=== PATIENT | female | born 1965 | race Caucasian/White ===

== ENCOUNTER 2018-04-21 15:27 | Observation (INO) | payer MEDICAID ==
[~2018-04-21] VITALS: Ht 167.6 cm; Wt 68.5 kg
[2018-04-21 16:11] LABS: BASOPHILS # (AUTO) 0.1 10^3/uL (0.0-0.1); BASOPHILS % (AUTO) 1 % (0-10); EOSINOPHILS # (AUTO) 0.6 10^3/uL (0.0-0.3); EOSINOPHILS % (AUTO) 7 % (0-10); LYMPHOCYTES # (AUTO) 2.3 X 10^3 (1.0-4.0); LYMPHOCYTES % (AUTO) 27 % (12-44); MEAN CORPUSCULAR HEMOGLOBIN 23 PG (25-34); MEAN CORPUSCULAR HGB CONC 30 G/DL (32-36); MEAN CORPUSCULAR VOLUME 76 FL (80-99); MEAN PLATELET VOLUME 9.2 FL (7.4-10.4); MONOCYTES # (AUTO) 0.6 X 10^3 (0.0-1.0); MONOCYTES % (AUTO) 7 % (0-12); NEUTROPHILS % (AUTO) 59 % (42-75); PLATELET COUNT 624 10^3/uL (130-400); RED BLOOD COUNT 2.61 10^6/uL (4.35-5.85); RED CELL DISTRIBUTION WIDTH 16.8 % (10.0-14.5); WHITE BLOOD COUNT 8.5 10^3/uL (4.3-11.0)
[2018-04-21 16:13] LABS: HEMATOCRIT 20 % (35-52); HEMOGLOBIN 5.9 G/DL (11.5-16.0)
[2018-04-21 16:26] LABS: BILIRUBIN,TOTAL 0.1 MG/DL (0.1-1.0); CALCIUM 9.1 MG/DL (8.5-10.1); CREATININE SERUM 1.01 MG/DL (0.60-1.30); POTASSIUM 4.1 MMOL/L (3.6-5.0); TOTAL PROTEIN 7.5 GM/DL (6.4-8.2)
[2018-04-21] MEDS ORDERED: NS IV 500 ML 500 ML IV SCH ×2 (17:01→20:00)
--- NOTE | 2018-04-21 17:15 | ED General ---
General Chief Complaint: General Problems/Pain Stated Complaint: TIRED;LOW HEMOGLOBIN Nursing Triage Note: PT PRESENTS TO ED FROM DR OFFICE AFTER SHE WAS TOLD HER HGB WAS LOW WHEN THEY WERE TRYING TO CHECK HER A1C. PT REPORTS SHE HAS BEEN FEELING FATIGUED FOR 2 WEEKS AND NOTICED INCREASE IN PALENESS. Nursing Sepsis Screen: No Definite Risk Source of Information: Patient Exam Limitations: No Limitations History of Present Illness Date Seen by Provider: Apr 21, 2018 Time Seen by Provider: 17:11 Initial Comments The patient is a 52-year-old white female who was sent here from her provider's office. She stated that she had gone in for a routine diabetic check and had laboratory drawn because she appeared to be the pale and reported she was fatigued. She was found to have a hemoglobin of 5. She denies any evidence of bleeding which is to say vomiting blood or black tarry looking stools or hematochezia. She is postmenopausal. Allergies and Home Medications Allergies Coded Allergies: Penicillins (Verified Allergy, Unknown, 04/21/18) iodine (Verified Allergy, Unknown, 04/21/18) risperidone (Verified Allergy, Unknown, 04/21/18) Home Medications Unable to Obtain Active Prescriptions or Reported Meds Patient Home Medication List Home Medication List Reviewed: Yes Review of Systems Constitutional: see HPI, malaise, other (fatigue) EENTM: no symptoms reported Cardiovascular: no symptoms reported Gastrointestinal: no symptoms reported Genitourinary: no symptoms reported Musculoskeletal: no symptoms reported Psychiatric/Neurological: No Symptoms Reported Hematologic/Lymphatic: No Symptoms Reported Immunological/Allergic: no symptoms reported Past Iojchty-Uzyzmb-Gpaelk Hx Patient Social History Alcohol Use: Denies Use Recreational Drug Use: Yes Smoking Status: Current Everyday Smoker Type Used: Cigarettes Recent Foreign Travel: No Contact w/Someone Who Travel: No Recent Infectious Disease Expo: No Recent Hopitalizations: No Physical Abuse: No Sexual Abuse: No Mistreated: No Fear: No Past Medical History Surgeries: Yes Appendectomy, Section, Gallbladder, Hysterectomy, Tonsillectomy, Tubal Ligation Respiratory: No Cardiac: No Neurological: No Genitourinary: No Gastrointestinal: No Musculoskeletal: No Endocrine: Yes Diabetes, Non-Insulin dep Cancer: No Psychosocial: Yes PTSD, Schizophrenia, Depression Nursing Suicide Risk Score: 0 Integumentary: No Blood Disorders: No Adverse Reaction/Blood Tranf: No Physical Exam Vital Signs Vital Signs - First Documented 04/21/18 16:06 Temp 98.4 Pulse 81 Resp 16 B/P (MAP) 164/81 (108) Pulse Ox 100 Capillary Refill : Less Than 3 Seconds Height, Weight, BMI Height: 5'6.00" Weight: 151lbs. oz. 68.205464gr; BMI Method:Stated General Appearance: No Apparent Distress, WD/WN, Other (vital signs are normal pulse equals 95) Eyes: Bilateral Eye Normal Inspection HEENT: Normal ENT Inspection Neck: Normal Inspection Respiratory: Chest Non Tender, Lungs Clear, Normal Breath Sounds, No Accessory Muscle Use, No Respiratory Distress Cardiovascular: Regular Rate, Rhythm, No Edema, No Gallop, No JVD, No Murmur, Normal Peripheral Pulses Gastrointestinal: Normal Bowel Sounds, No Organomegaly, No Pulsatile Mass, Non Tender Back: Normal Inspection, No CVA Tenderness, No Vertebral Tenderness Extremity: Normal Capillary Refill, Normal Inspection, Normal Range of Motion, Non Tender, No Calf Tenderness, No Pedal Edema Neurologic/Psychiatric: Alert, Oriented x3, No Motor/Sensory Deficits, Normal Mood/Affect Skin: Normal Color, Warm/Dry Lymphatic: No Adenopathy Progress/Results/Core Measures Suspected Sepsis Recent Fever Within 48 Hours: No Infection Criteria Present: None New/Unexplained Altered Menta: No Sepsis Screen: No Definite Risk SIRS Temperature:98.4 Pulse: 81 Respiratory Rate: 16 Laboratory Tests 04/21/18 16:01: White Blood Count 8.5 Blood Pressure 164 /81 Mean: 108 Laboratory Tests 04/21/18 16:01: Creatinine 1.01, Platelet Count 624H, Total Bilirubin 0.1 Results/Orders Lab Results Laboratory Tests Test 04/21/18 16:01 Range/Units White Blood Count 8.5 4.3-11.0 10^3/uL Red Blood Count 2.61 L 4.35-5.85 10^6/uL Hemoglobin 5.9 *L 11.5-16.0 G/DL Hematocrit 20 *L 35-52 % Mean Corpuscular Volume 76 L 80-99 FL Mean Corpuscular Hemoglobin 23 L 25-34 PG Mean Corpuscular Hemoglobin Concent 30 L 32-36 G/DL Red Cell Distribution Width 16.8 H 10.0-14.5 % Platelet Count 624 H 130-400 10^3/uL Mean Platelet Volume 9.2 7.4-10.4 FL Neutrophils (%) (Auto) 59 42-75 % Lymphocytes (%) (Auto) 27 12-44 % Monocytes (%) (Auto) 7 0-12 % Eosinophils (%) (Auto) 7 0-10 % Basophils (%) (Auto) 1 0-10 % Neutrophils # (Auto) 5.0 1.8-7.8 X 10^3 Lymphocytes # (Auto) 2.3 1.0-4.0 X 10^3 Monocytes # (Auto) 0.6 0.0-1.0 X 10^3 Eosinophils # (Auto) 0.6 H 0.0-0.3 10^3/uL Basophils # (Auto) 0.1 0.0-0.1 10^3/uL Sodium Level 142 135-145 MMOL/L Potassium Level 4.1 3.6-5.0 MMOL/L Chloride Level 110 H 98-107 MMOL/L Carbon Dioxide Level 22 21-32 MMOL/L Anion Gap 10 5-14 MMOL/L Blood Urea Nitrogen 6 L 7-18 MG/DL Creatinine 1.01 0.60-1.30 MG/DL Estimat Glomerular Filtration Rate 58 BUN/Creatinine Ratio 6 Glucose Level 163 H 70-105 MG/DL Calcium Level 9.1 8.5-10.1 MG/DL Total Bilirubin 0.1 0.1-1.0 MG/DL Aspartate Amino Transf (AST/SGOT) 17 5-34 U/L Alanine Aminotransferase (ALT/SGPT) 8 0-55 U/L Alkaline Phosphatase 62 40-136 U/L Total Protein 7.5 6.4-8.2 GM/DL Albumin 4.0 3.2-4.5 GM/DL My Orders Orders - YANELIS LAGUERRE MD Vital Signs: Special (Order) (04/21/18 17:01) Consent-Obtain Consent For (04/21/18 17:01) Monitor S/S Transfusion Reacti (04/21/18 17:01) Ns Iv 500 Ml (Sodium Chloride 0.9%) (04/21/18 17:01) Red Cells Leukocytes Reduced (04/21/18 17:01) Anemia Analyzer (04/21/18 17:01) Type And Screen (04/21/18 17:01) Vital Signs/I&O 04/21/18 16:06 Temp 98.4 Pulse 81 Resp 16 B/P (MAP) 164/81 (108) Pulse Ox 100 Capillary Refill : Less Than 3 Seconds Blood Pressure Mean: 108 Departure Impression Primary Impression: severe anemia Additional Impression: diabetes type II Disposition: ADMITTED INPATIENT Condition: Stable/Unchanged (cosleep [place] I and a nearly 6 who apparently was seen earlier today in [place]) Admissions Decision to Admit Reason: Admit from ER (General) Decision to Admit/Date: Apr 21, 2018 Time/Decision to Admit Time: 17:33 Departure-Patient Inst. Referrals: AGUILAR SMITH (PCP) Primary Care Physician Scripts Unable to Obtain Active Prescriptions or Reported Meds YANELIS LAGUERRE MD Apr 21, 2018 17:14
[2018-04-21] MEDS ORDERED: NS IV 1000 ML 1,000 ML IV SCH ×2 (17:45→20:00)
--- NOTE | 2018-04-21 18:10 | Consultation ---
History of Present Illness History of Present Illness Patient Consulted On(dorota/time) 04/21/18 18:05 Date Seen by Provider: Apr 21, 2018 Time Seen by Provider: 17:36 History of Present Illness Surgery asked to consult regarding anemia. HPI per ED: The patient is a 52-year-old white female who was sent here from her provider's office. She stated that she had gone in for a routine diabetic check and had laboratory drawn because she appeared to be the pale and reported she was fatigued. She was found to have a hemoglobin of 5. She denies any evidence of bleeding which is to say vomiting blood or black tarry looking stools or hematochezia. She is postmenopausal. When I spoke to pt she stated the only time she ever saw bloody BM's was when " I had my hemorrhoids"; which was 10-20 yrs ago and she has not seen bleeding or black BM's since. She states she has only been "weak" for about 2 weeks; thought she was fine before that. Pt denies any abdominal pain, with no trouble eating. She denies heartburn and has never had an EGD. She has however had multiple colonoscopies, the first at 22 yo because her mother at 44 of colon cancer. She states she had another one 10 years later and then maybe 2 years after that she had another because of bleeding. She thinks her last colonoscopy was about 5 years ago and she states that they've never found any polyps or problems anywhere during the colonoscopies. Patient states she thought her father might have a low blood level because of a "blockage in his kidney. She however does not think there been any other people in her family with low hemoglobin. Allergies and Home Medications Allergies Coded Allergies: Penicillins (Verified Allergy, Unknown, 04/21/18) iodine (Verified Allergy, Unknown, 04/21/18) risperidone (Verified Allergy, Unknown, 04/21/18) Home Medications Unable to Obtain Active Prescriptions or Reported Meds Patient Home Medication List Home Medication List Reviewed: Yes Past Tlyzrfj-Ksdruv-Yzjgsm Hx Patient Social History Alcohol Use: Denies Use Recreational Drug Use: Yes Smoking Status: Current Everyday Smoker Type Used: Cigarettes Recent Foreign Travel: No Contact w/Someone Who Travel: No Recent Infectious Disease Expo: No Recent Hopitalizations: No Surgeries History of Surgeries: Yes Surgeries: Appendectomy, Section, Gallbladder, Hysterectomy, Tonsillectomy, Tubal Ligation Respiratory History of Respiratory Disorde: No Cardiovascular History of Cardiac Disorders: No Neurological History of Neurological Disord: No Reproductive System : No Genitourinary History of Genitourinary Disor: No Gastrointestinal History of Gastrointestinal Di: No Musculoskeletal History of Musculoskeletal Dis: No Endocrine History of Endocrine Disorders: Yes Endocrine Disorders: Diabetes, Non-Insulin dep HEENT History of HEENT Disorders: No Loss of Vision: Denies Hearing Impairment: Denies Cancer History of Cancer: No Psychosocial History of Psychiatric Problem: Yes Behavioral Health Disorders: PTSD, Schizophrenia, Depression Integumentary History of Skin or Integumenta: No Blood Transfusions History of Blood Disorders: No Adverse Reaction to a Blood Tr: No Family Medical History Significant Family History: Cancer (Mother of colon cancer), Diabetes ( Father and siblings) Review of Systems-General Constitutional: No chills, No diaphoresis; dizziness, malaise, weakness EENTM: No blurred vision, No mouth pain, No mouth swelling, No epistaxis Respiratory: No cough, No hemoptysis, No short of breath Cardiovascular: No chest pain, No edema, No palpitations Gastrointestinal: No abdominal pain, No dysphagia, No hematemesis, No jaundice Genitourinary: No dysuria, No frequency, No hematuria Musculoskeletal: joint pain, muscle stiffness Skin: No change in color, No change in hair/nails Psychiatric/Neurological: Anxiety, Depressed; Denies Seizure, Denies Tremors Other Pt denies any abnormal bleeding or bruising, She also denies heat or cold intolerance. Physical Exam-General Problems Physical Exam Vital Signs Vital Signs - First Documented 04/21/18 16:06 Temp 98.4 Pulse 81 Resp 16 B/P (MAP) 164/81 (108) Pulse Ox 100 Capillary Refill : Less Than 3 Seconds General Appearance: WD/WN, mild distress Eyes: Bilateral Eye PERRL, Bilateral Eye EOMI HEENT: pharynx normal; No scleral icterus (R), No scleral icterus (L); pale conjunctivae (R), pale conjunctivae (L), other (patient is edentulous.) Neck: non-tender; No thyromegaly Respiratory: chest non-tender, lungs clear, normal breath sounds, no respiratory distress, no accessory muscle use Cardiovascular: regular rate, rhythm, no edema, no murmur Gastrointestinal: normal bowel sounds, non tender, soft, no organomegaly, no pulsatile mass Rectal: deferred Back: no CVA tenderness, no vertebral tenderness Extremities: normal range of motion, non-tender, normal inspection, no pedal edema, no calf tenderness Neurologic/Psychiatric: psychiatric social worker II-XII nml as tested, no motor/sensory deficits, alert, normal mood/affect, oriented x 3 Skin: warm/dry, pallor Lymphatic: no adenopathy (neck, axilla or groin) Data Review Labs Laboratory Tests 04/21/18 16:01: White Blood Count 8.5, Red Blood Count 2.61L, Hemoglobin 5.9*L, Hematocrit 20*L , Mean Corpuscular Volume 76L, Mean Corpuscular Hemoglobin 23L, Mean Corpuscular Hemoglobin Concent 30L, Red Cell Distribution Width 16.8H, Platelet Count 624H, Mean Platelet Volume 9.2, Neutrophils (%) (Auto) 59, Lymphocytes (% ) (Auto) 27, Monocytes (%) (Auto) 7, Eosinophils (%) (Auto) 7, Basophils (%) ( Auto) 1, Neutrophils # (Auto) 5.0, Lymphocytes # (Auto) 2.3, Monocytes # (Auto) 0.6, Eosinophils # (Auto) 0.6H, Basophils # (Auto) 0.1, Sodium Level 142, Potassium Level 4.1, Chloride Level 110H, Carbon Dioxide Level 22, Anion Gap 10 , Blood Urea Nitrogen 6L, Creatinine 1.01, Estimat Glomerular Filtration Rate 58 , BUN/Creatinine Ratio 6, Glucose Level 163H, Calcium Level 9.1, Total Bilirubin 0.1, Aspartate Amino Transf (AST/SGOT) 17, Alanine Aminotransferase ( ALT/SGPT) 8, Alkaline Phosphatase 62, Total Protein 7.5, Albumin 4.0 Assessment/Plan Assessment/Plan Assessment/Plan Anemia - profound DM Schizophrenia and Depression Patient is being admitted for blood transfusions. She will need a workup for anemia and prior that includes an EGD and a colonoscopy. This can be done as an outpatient and I informed the patient of this; we'll set this up for the next week or 2 when she is out after receiving blood. I discussed both procedures with the patient including risk and complications not limited to pain bleeding infection possible intestinal perforation or even esophageal perforation. We most likely will do biopsies and possibly polypectomies depending on what we find. Once she goes home I'll have my office call her and set up the procedures and give further instructions for her prep so that she does not come see me in the office we can just be an endoscopy. Patient had no questions all were answered to her satisfaction. Thank you for this consult. SHERRI ELLSWORTH DO Apr 21, 2018 18:10
[2018-04-21 18:31] LABS: RED BLOOD COUNT 2.61 10^6/uL (4.35-5.85); WHITE BLOOD COUNT 8.5 10^3/uL (4.3-11.0)
[2018-04-21 18:32] LABS: HEMATOCRIT 20 % (35-52); HEMOGLOBIN 5.9 G/DL (11.5-16.0); MEAN CORPUSCULAR HEMOGLOBIN 23 PG (25-34)
[2018-04-21 18:33] LABS: BAND NEUTROPHILS 0 %; BASOPHILS # (AUTO) 0.1 10^3/uL (0.0-0.1); BASOPHILS % (AUTO) 1 % (0-10); EOSINOPHILS # (AUTO) 0.6 10^3/uL (0.0-0.3); EOSINOPHILS % (AUTO) 7 % (0-10); EOSINOPHILS % (MANUAL) 5 %; LYMPHOCYTES # (AUTO) 2.3 X 10^3 (1.0-4.0); LYMPHOCYTES % (AUTO) 27 % (12-44); LYMPHOCYTES % (MANUAL) 24 %; MEAN CORPUSCULAR HGB CONC 30 G/DL (32-36); MEAN CORPUSCULAR VOLUME 76 FL (80-99); MEAN PLATELET VOLUME 9.2 FL (7.4-10.4); MONOCYTES # (AUTO) 0.6 X 10^3 (0.0-1.0); MONOCYTES % (AUTO) 7 % (0-12); MONOCYTES % (MANUAL) 6 %; NEUTROPHILS % (AUTO) 59 % (42-75); NEUTROPHILS % (MANUAL) 65 %; PLATELET COUNT 624 10^3/uL (130-400); RED CELL DISTRIBUTION WIDTH 16.8 % (10.0-14.5)
[2018-04-21 18:34] LABS: HYPOCHROMASIA SLIGHT; MICROCYTOSIS SLIGHT
[2018-04-21 18:35] LABS: ABSOLUTE RETIC # 0 10e9/L (24-90); RETICULOCYTE % 1.22 % (0.50-2.40)
[2018-04-21 19:00] VITALS: BP 153/85
[2018-04-21] MEDS ORDERED: ACETAMINOPHEN 325 MG TABLET PO ONE (19:30)
[2018-04-21] MEDS ORDERED: ACETAMINOPHEN 325 MG TABLET PO PRN (20:00)
[2018-04-21] MEDS ORDERED: CATHETER FLUSH 10 ML SYR IV PRN (20:00)
[2018-04-21 22:14] VITALS: BP 138/68
[2018-04-21 22:22] VITALS: BP 138/68
[2018-04-21 23:00] VITALS: BP 145/65
[2018-04-21 23:15] VITALS: BP 151/70
--- OUTSIDE RECORDS SUMMARY | 2018-04-22 00:21 | XMS REPORT ---
Author Author AGUILAR SMITH [facility] Address [address] [place] [address] Care Team Providers Care Customer Service Supervisor Name Role Phone SMITH, AGUILAR Unavailable PROBLEMS Type Condition ICD9-CM Code PSQ44-LG Code Onset Dates Condition Status SNOMED Code Problem Hypertriglyceridemia E78.1 Active 063223123 Problem Type 2 diabetes mellitus without complication, without long-term current use of insulin E11.9 Active 132798314 Problem Psoriasis L40.9 Active 5251795 Problem Depression, unspecified depression type F32.9 Active 07678607 Problem Schizophrenia, unspecified type F20.9 Active 50806427 Problem Prediabetes R73.09 Active 314918956 Problem PTSD (post-traumatic stress disorder) F43.10 Active 08981342 Problem Frequent headaches R51 Active 281416921 Problem Insomnia due to other mental disorder F51.05 Active 84738244 Problem Hip bursitis, left M70.72 Active 42470667 Problem Diabetic polyneuropathy associated with type 2 diabetes mellitus E11.42 Active 63827059 Problem History of lump of left breast Z87.898 Active 731198083 Problem Chronic constipation K59.09 Active 519223476 ALLERGIES Substance Reaction Event Type Date Status Risperdal hives Drug Allergy Dec, Active Penicillin V Potassium rash Drug Allergy Dec, Active Iodine anaphylaxis Drug Allergy Dec, Active ENCOUNTERS Encounter Location Date Diagnosis [facility] [address] [facility] [id number] [phone] Apr, [facility] [id number] [id number] Feb, Frequent headaches R51 [facility] [id number] [place] [address] [id number] Dec, Frequent headaches R51 and Insomnia due to other mental disorder F51.05 [facility] [id number] [place] [address] [id number] Nov, Type 2 diabetes mellitus without complication, without long-term current use of insulin E11.9 ; Frequent headaches R51 and Psoriasis L40.9 [facility] [place] [address] [id number] [place] [address] [id number] Sep, [facility] [id number] [place] [address] [id number] Sep, [facility] [place] [id number] [place] [address] [id number] Sep, Pain in left shoulder M25.512 [facility] [address] [id number] Aug, Schizophrenia, unspecified type F20.9 ; Pain in left shoulder M25.512 and Pain in right shoulder M25.511 [place] [address] [place] [address] [id number] Aug, Schizophrenia, unspecified type F20.9 [facility] [place] [id number] [place] [address] [id number] Jul, Diabetic polyneuropathy associated with type 2 diabetes mellitus E11.42 ; Schizophrenia, unspecified type F20.9 and Psoriasis L40.9 [place] [id number] [place] [address] [id number] Jul, Vertigo R42 [place] [id number] [place] [address] [id number] May, Vertigo R42 [place] [address] [place] [address] [id number] May, Diabetic polyneuropathy associated with type 2 diabetes mellitus E11.42 [place] [address] [place] [address] [id number] Apr, Diabetic polyneuropathy associated with type 2 diabetes mellitus E11.42 ; Insomnia due to other mental disorder F51.05 and Vertigo R42 [place] [id number] [place] [address] [id number] Feb, Type 2 diabetes mellitus without complication, without long-term current use of insulin E11.9 and Other hemorrhoids K64.8 [place] [address] [place] [address] [id number] January, Well woman exam Z01.419 ; Yeast infection of the skin B37.2 and Grade III hemorrhoids K64.2 [place] [address] [place] [address] [id number] Dec, Diabetic polyneuropathy associated with type 2 diabetes mellitus E11.42 [place] [address] [place] [address] [id number] Dec, Hypertriglyceridemia E78.1 ; Type 2 diabetes mellitus without complication , without long-term current use of insulin E11.9 ; Insomnia due to other mental disorder F51.05 ; Diabetic polyneuropathy associated with type 2 diabetes mellitus E11.42 ; Bronchitis J40 ; Psoriasis L40.9 ; Dermatitis L30.9 and Chronic constipation K59.09 [place] [address] [place] [address] [id number] Nov, Hypertriglyceridemia E78.1 and Type 2 diabetes mellitus without complication, without long-term current use of insulin E11.9 [place] [address] [place] [address] [id number] Nov, Hyperlipidemia, unspecified hyperlipidemia type E78.5 [place] [address] [place] [address] [id number] Oct, [place] [address] [place] [address] [id number] Oct, Diabetic polyneuropathy associated with type 2 diabetes mellitus E11.42 ; Insomnia due to other mental disorder F51.05 ; Psoriasis L40.9 and Hip bursitis , left M70.[address] [place] [address] [id number] Oct, [place] [address] [place] [address] [id number] Oct, Dermatitis L30.[address] [id number] Sep, Pain of left hip joint M25.552 and Insomnia due to other mental disorder F51.05 [place] [address] [place] [address] [id number] Sep, Bronchitis J40 [facility] [id number] [id number] Sep, Acute nasopharyngitis J00 ; History of wheezing Z87.898 ; Tobacco abuse Z72.0 and Tobacco abuse counseling Z71.6 [facility] [id number] [address] Sep, [address] [place] [address] [id number] Sep, Type 2 diabetes mellitus without complication, without long-term current use of insulin E11.9 [address] [place] [address] [id number] Aug, Chronic constipation K59.09 [place] [address] [place] [address] [id number] Aug, Type 2 diabetes mellitus without complication, without long-term current use of insulin E11.9 [place] [address] [place] [address] [id number] Aug, [place] [address] [place] [address] [id number] Jul, Breast tenderness in female N64.4 ; Screening breast examination Z12.39 ; History of lump of left breast Z87.898 and Chronic constipation K59.09 [address] [place] [address] [id number] Jul, Type 2 diabetes mellitus without complication, without long-term current use of insulin E11.9 ; Hip bursitis, left M70.72 ; Schizophrenia, unspecified type F20.9 and Diabetic polyneuropathy associated with type 2 diabetes mellitus E11.42 [id number] [id number] Jul, [address] [place] [address] [id number] Jul, Hip bursitis, left M70.72 [address] [place] [address] [id number] Jun, Diabetic polyneuropathy associated with type 2 diabetes mellitus E11.42 [address] [place] [address] [id number] Jun, [facility] [id number] [id number] May, Type 2 diabetes mellitus without complication, without long-term current use of insulin E11.9 [facility] [id number] [id number] May, [facility] [id number] [place] [address] [id number] May, Dermatitis L30.9 [facility] [id number] [place] [address] [id number] Apr, [facility] [address] [address] [id number] [place] [address] [id number] Apr, Type 2 diabetes mellitus without complication, without long-term current use of insulin E11.9 and Schizophrenia, unspecified type F20.9 [facility] [id number] [place] [address] [id number] Apr, [place] [id number] [place] [address] [id number] Apr, [facility] [address] [place] [id number] [place] [address] [id number] Mar, Depression, unspecified depression type F32.9 ; Schizophrenia, unspecified type F20.9 and Psoriasis L40.9 [address] [place] [address] [id number] Feb, Prediabetes R73.09 ; Depression, unspecified depression type F32.9 ; Schizophrenia, unspecified type F20.9 and Hypertriglyceridemia E78.1 [place] [id number] [place] [address] [id number] January, Hyperlipidemia, unspecified hyperlipidemia type E78.5 [address] [place] [address] [id number] January, Schizophrenia, unspecified type F20.9 ; Depression, unspecified depression type F32.9 ; PTSD (post-traumatic stress disorder) F43.10 and Prediabetes R73.09 IMMUNIZATIONS No Known Immunizations SOCIAL HISTORY Never Assessed REASON FOR VISIT headaches follow up Madhuri RAINEY PLAN OF CARE Activity Details Follow Up 3 Months Reason:dm VITAL SIGNS Height 66 in 2017-12-29 Weight 153.3 lbs 2017-12-29 Temperature 97.8 degrees Fahrenheit 2017-12-29 Heart Rate 100 bpm 2017-12-29 Respiratory Rate 18 2017-12-29 BMI 24.74 kg/m2 2017-12-29 Blood pressure systolic 120 mmHg 2017-12-29 Blood pressure diastolic 64 mmHg 2017-12-29 MEDICATIONS Medication Instructions Dosage Frequency Start Date End Date Duration Status Haloperidol 5 MG 1 1/2 tablets am/ pm 1 tab midday 3 times a day Orally 0 days Active ProAir HFA 108 (90 Base) MCG/ACT INHALE (2) PUFFS BY MOUTH EVERY (4) FOUR HOURS NEEDED... Active Glucometer ... True Test E11.9 as directed January, Active Tricor 145 MG Orally Once a day 1 tablet 24h 0 Active Gabapentin 400 MG Orally Three times a day 1 capsule 8h Active Paxil 40 mg Orally Once a day 1 tablet in the morning 24h Active Meloxicam 15 mg Orally Once a day 1 tablet 24h 0 days Active True Metrix Blood Glucose Test - True Metrix Once a day, DX: E11.9 .... Active TRUEplus Lancets 28G - DX: E11:9 Once a day .... 24h Active Trazodone HCl 100 MG 1 tablet at bedtime as needed Once a day Orally Active Victoza 18 MG/3ML Subcutaneous Once a day .6 mg 24h Active Seroquel 300 MG Orally Once a day 2 tablet at bedtime 24h Active BD Pen Needle Ultrafine 29G X 12.7MM subcutaneously Once a day as directed 24h Active MetFORMIN HCl ER 750 mg Orally Once a day 2 tablet 24h Active Fish Oil 1000 MG Orally 3 times a day 1 capsule 8h Active Triamcinolone Acetonide 0.1 % Externally Twice a day 1 application to affected area 12h 15 Nov, 2017 Active Meclizine HCl 25 MG Orally 3 times a day 1 tablet as needed 8h 0 Active RESULTS No Results PROCEDURES No Known procedures INSTRUCTIONS MEDICATIONS ADMINISTERED No Known Medications MEDICAL (GENERAL) HISTORY Type Description Date Medical History schizophrenia Medical History PTSD Medical History depression Medical History mood disorder Medical History fibromyalgia Surgical History section x 2 1986,1996 Surgical History tubal ligation 1986 Surgical History cholecystectomy 2005 Surgical History tonsillectomy 1977 Surgical History hysterectomy 2009 Surgical History colonoscopy 2013 Surgical History hemorrhoidectomy 01/2017 Hospitalization History surgeries
--- OUTSIDE RECORDS SUMMARY | 2018-04-22 00:21 | XMS REPORT ---
Author Author AGUILAR SMITH Organization [employer] Address Unknown Phone Unavailable Care Team Providers Care Treasury Specialist Name Role Phone AGUILAR SMITH CP Unavailable Allergies, Adverse Reactions, Alerts Substance Reaction Event Type Risperdal hives Drug Allergy Penicillin V Potassium rash Drug Allergy Iodine anaphylaxis Drug Allergy Problems Problem Type Condition Code Onset Dates Condition Status Assessment Schizophrenia, unspecified type F20.9 Active Assessment Psoriasis L40.9 Active Problem Hypertriglyceridemia E78.1 Active Problem Schizophrenia, unspecified type F20.9 Active Problem Psoriasis L40.9 Active Problem Prediabetes R73.09 Active Assessment Depression, unspecified depression type F32.9 Active Problem Depression, unspecified depression type F32.9 Active Problem PTSD (post-traumatic stress disorder) F43.10 Active Medications Medication Code System Code Instructions Start Date End Date Status Dosage Haloperidol [facility] [address]-20 15 mg Orally 3 times a day 1 tablet Tricor [facility] [address]-91 48 MG Orally Once a day February 13, 2016 1 tablet Glucometer [facility] 0 ... February 11, 2016 as directed Paxil [facility] [address]-46 40 mg Orally Once a day .5 tab qd x 1 wk then 1 tablet in the morning Seroquel [facility] [address]-14 300 MG Orally Once a day 1 tab qhs x 1 wk then 2 tablet at bedtime MetFORMIN HCl ER [facility] [address]-17 500 MG Orally Once a day March 03, 2016 1 tablet Triamcinolone Acetonide [facility] [address]-27 0.1 % Externally Twice a day as needed for skin flairs April 02, 2016 1 application to affected area Procedures Procedure Coding System Code Date Office Visit, Est Pt., Level 3 CPT-4 40378 April 02, 2016 Vital Signs Date/Time: April 02, 2016 Cardiac Monitoring Heart Rate 86 bpm Weight 163.2 lbs Height 66 in Blood Pressure Diastolic 68 mmHg Blood Pressure Systolic 110 mmHg Results No Known Results Summary Purpose [employer] Submission
--- OUTSIDE RECORDS SUMMARY | 2018-04-22 00:21 | XMS REPORT ---
Author Author AGUILAR SMITH [facility] Address [address] [place] [address] Care Team Providers Care Electronic Warfare Technician Name Role Phone AGUILAR SMITH Unavailable PROBLEMS Type Condition ICD9-CM Code [id number] Code Onset Dates Condition Status SNOMED Code Problem PTSD (post-traumatic stress disorder) F43.10 Active 85606431 Problem Psoriasis L40.9 Active 7179065 Problem Hypertriglyceridemia E78.1 Active 201989884 Problem Depression, unspecified depression type F32.9 Active 98680836 Problem Schizophrenia, unspecified type F20.9 Active 85600670 Problem Prediabetes R73.09 Active 207139451 Problem Insomnia due to other mental disorder F51.05 Active 35989657 Problem History of lump of left breast Z87.898 Active 508839949 Problem Diabetic polyneuropathy associated with type 2 diabetes mellitus E11.42 Active 98243433 Problem Type 2 diabetes mellitus without complication, without long-term current use of insulin E11.9 Active 453186235 Problem Chronic constipation K59.09 Active 494446783 Problem Hip bursitis, left M70.72 Active 25015467 ALLERGIES Unknown Allergies SOCIAL HISTORY No smoking Hx information available PLAN OF CARE VITAL SIGNS MEDICATIONS Unknown Medications RESULTS No Results PROCEDURES No Known procedures IMMUNIZATIONS No Known Immunizations
--- OUTSIDE RECORDS SUMMARY | 2018-04-22 00:21 | XMS REPORT ---
Author Author AGUILAR SMITH [facility] Address [address] [place] [address] Care Team Providers Care Family And Consumer Education Teacher Name Role Phone SMITH, AGUILAR Unavailable PROBLEMS Type Condition ICD9-CM Code MHW15-FS Code Onset Dates Condition Status SNOMED Code Problem Hypertriglyceridemia E78.1 Active 318024673 Problem Type 2 diabetes mellitus without complication, without long-term current use of insulin E11.9 Active 591571840 Problem Psoriasis L40.9 Active 4736789 Problem Depression, unspecified depression type F32.9 Active 62622045 Problem Schizophrenia, unspecified type F20.9 Active 02616834 Problem Prediabetes R73.09 Active 974099452 Problem PTSD (post-traumatic stress disorder) F43.10 Active 37045353 Problem Frequent headaches R51 Active 992041494 Problem Insomnia due to other mental disorder F51.05 Active 00483375 Problem Hip bursitis, left M70.72 Active 32442973 Problem Diabetic polyneuropathy associated with type 2 diabetes mellitus E11.42 Active 58653456 Problem History of lump of left breast Z87.898 Active 334578478 Problem Chronic constipation K59.09 Active 002993978 ALLERGIES Substance Reaction Event Type Date Status Risperdal hives Drug Allergy Nov, Active Penicillin V Potassium rash Drug Allergy Nov, Active Iodine anaphylaxis Drug Allergy Nov, Active ENCOUNTERS Encounter Location Date Diagnosis [facility] [address] [facility] [id number] [id number] Apr, [facility] [id number] [id number] Feb, Frequent headaches R51 [facility] [id number] [place] [address] [id number] Dec, Frequent headaches R51 and Insomnia due to other mental disorder F51.05 [facility] [id number] [place] [address] [id number] Nov, Type 2 diabetes mellitus without complication, without long-term current use of insulin E11.9 ; Frequent headaches R51 and Psoriasis L40.9 [facility] [place] [address] [place] [id number] [place] [address] [id number] Sep, [facility] [id number] [place] [address] [id number] Sep, [facility] [place] [id number] [place] [address] [id number] Sep, Pain in left shoulder M25.512 [facility] [address] [id number] Aug, Schizophrenia, unspecified type F20.9 ; Pain in left shoulder M25.512 and Pain in right shoulder M25.511 [place] [id number] [place] [address] [id number] Aug, Schizophrenia, unspecified type F20.9 [facility] [place] [id number] [place] [address] [id number] Jul, Diabetic polyneuropathy associated with type 2 diabetes mellitus E11.42 ; Schizophrenia, unspecified type F20.9 and Psoriasis L40.9 [place] [id number] [place] [address] [id number] Jul, Vertigo R42 [place] [id number] [place] [address] [id number] May, Vertigo R42 [place] [id number] [place] [address] [id number] May, Diabetic polyneuropathy associated with type 2 diabetes mellitus E11.42 [place] [id number] [place] [address] [id number] Apr, Diabetic polyneuropathy associated with type 2 diabetes mellitus E11.42 ; Insomnia due to other mental disorder F51.05 and Vertigo R42 [place] [id number] [place] [address] [id number] Feb, Type 2 diabetes mellitus without complication, without long-term current use of insulin E11.9 and Other hemorrhoids K64.8 [place] [id number] [place] [address] [id number] January, Well woman exam Z01.419 ; Yeast infection of the skin B37.2 and Grade III hemorrhoids K64.2 [place] [id number] [place] [address] [id number] Dec, Diabetic polyneuropathy associated with type 2 diabetes mellitus E11.42 [place] [id number] [place] [address] [id number] Dec, Hypertriglyceridemia E78.1 ; Type 2 diabetes mellitus without complication , without long-term current use of insulin E11.9 ; Insomnia due to other mental disorder F51.05 ; Diabetic polyneuropathy associated with type 2 diabetes mellitus E11.42 ; Bronchitis J40 ; Psoriasis L40.9 ; Dermatitis L30.9 and Chronic constipation K59.09 [place] [id number] [place] [address] [id number] Nov, Hypertriglyceridemia E78.1 and Type 2 diabetes mellitus without complication, without long-term current use of insulin E11.9 [place] [id number] [place] [address] [id number] Nov, Hyperlipidemia, unspecified hyperlipidemia type E78.5 [place] [id number] [place] [address] [id number] Oct, [place] [id number] [place] [address] [id number] Oct, Diabetic polyneuropathy associated with type 2 diabetes mellitus E11.42 ; Insomnia due to other mental disorder F51.05 ; Psoriasis L40.9 and Hip bursitis , left M70.[address] [place] [address] [id number] Oct, [place] [id number] [place] [address] [id number] Oct, Dermatitis L30.[address] [id number] Sep, Pain of left hip joint M25.552 and Insomnia due to other mental disorder F51.05 [place] [id number] [place] [address] [id number] Sep, Bronchitis J40 [facility] [id number] [id number] Sep, Acute nasopharyngitis J00 ; History of wheezing Z87.898 ; Tobacco abuse Z72.0 and Tobacco abuse counseling Z71.6 [facility] [address] [address] Sep, [address] [place] [address] [id number] Sep, Type 2 diabetes mellitus without complication, without long-term current use of insulin E11.9 [address] [place] [address] [id number] Aug, Chronic constipation K59.09 [place] [id number] [place] [address] [id number] Aug, Type 2 diabetes mellitus without complication, without long-term current use of insulin E11.9 [place] [id number] [place] [address] [id number] Aug, [place] [id number] [place] [address] [id number] Jul, Breast tenderness in female N64.4 ; Screening breast examination Z12.39 ; History of lump of left breast Z87.898 and Chronic constipation K59.09 [address] [place] [address] [id number] Jul, Type 2 diabetes mellitus without complication, without long-term current use of insulin E11.9 ; Hip bursitis, left M70.72 ; Schizophrenia, unspecified type F20.9 and Diabetic polyneuropathy associated with type 2 diabetes mellitus E11.42 [id number] [id number] Jul, [address] [place] [address] [id number] Jul, Hip bursitis, left M70.72 [address] [place] [address] [id number] Jun, Diabetic polyneuropathy associated with type 2 diabetes mellitus E11.42 [address] [place] [address] [id number] Jun, [facility] [id number] [id number] May, Type 2 diabetes mellitus without complication, without long-term current use of insulin E11.9 [facility] [id number] [id number] May, [facility] [id number] [place] [address] [id number] May, Dermatitis L30.9 [facility] [id number] [place] [address] [id number] Apr, [facility] [address] [place] [id number] [place] [address] [id number] Apr, Type 2 diabetes mellitus without complication, without long-term current use of insulin E11.9 and Schizophrenia, unspecified type F20.9 [facility] [id number] [id number] Apr, [place] [id number] [place] [address] [id number] Apr, [facility] [id number] [place] [address] [id number] Mar, Depression, unspecified depression type F32.9 ; Schizophrenia, unspecified type F20.9 and Psoriasis L40.9 [place] [id number] [place] [address] [id number] Feb, Prediabetes R73.09 ; Depression, unspecified depression type F32.9 ; Schizophrenia, unspecified type F20.9 and Hypertriglyceridemia E78.1 [place] [id number] [id number] January, Hyperlipidemia, unspecified hyperlipidemia type E78.5 [place] [id number] [place] [address] [id number] January, Schizophrenia, unspecified type F20.9 ; Depression, unspecified depression type F32.9 ; PTSD (post-traumatic stress disorder) F43.10 and Prediabetes R73.09 IMMUNIZATIONS No Known Immunizations SOCIAL HISTORY Never Assessed REASON FOR VISIT 3 month diabetic follow up. Also having headaches that lasts about 2-3 hours x 1 month. denise Saucedo PLAN OF CARE Activity Details Follow Up 4 Weeks Reason:headaches VITAL SIGNS Height 66 in 2017-12-02 Weight 156.4 lbs 2017-12-02 Temperature 98.4 degrees Fahrenheit 2017-12-02 Heart Rate 82 bpm 2017-12-02 Respiratory Rate 16 2017-12-02 BMI 25.24 kg/m2 2017-12-02 Blood pressure systolic 110 mmHg 2017-12-02 Blood pressure diastolic 68 mmHg 2017-12-02 MEDICATIONS Medication Instructions Dosage Frequency Start Date End Date Duration Status TRUEplus Lancets 28G - DX: E11:9 Once a day .... 24h Active Trazodone HCl 50 mg 1.5 tablet at bedtime as needed Once a day Orally Active Fish Oil 1000 MG Orally 3 times a day 1 capsule 8h Active Gabapentin 400 MG Orally Three times a day 1 capsule 8h Active ProAir HFA 108 (90 Base) MCG/ACT INHALE (2) PUFFS BY MOUTH EVERY (4) FOUR HOURS NEEDED... Active Victoza 18 MG/3ML Subcutaneous Once a day .6 mg 24h Active MetFORMIN HCl ER 750 mg Orally Once a day 2 tablet 24h Active Paxil 40 mg Orally Once a day 1 tablet in the morning 24h Active Meclizine HCl 25 MG Orally 3 times a day 1 tablet as needed 8h 0 Active Meloxicam 15 mg Orally Once a day 1 tablet 24h 0 days Active Glucometer ... True Test E11.9 as directed January, Active Triamcinolone Acetonide 0.1 % Externally Twice a day 1 application to affected area 12h 15 Nov, 2017 Active Haloperidol 10 MG Orally 3 times a day 1 1/2 tablets am/ pm 1 tab midday 8h Active True Metrix Blood Glucose Test - True Metrix Once a day, DX: E11.9 .... Active Tricor 145 MG Orally Once a day 1 tablet 24h 0 days Active BD Pen Needle Ultrafine 29G X 12.7MM subcutaneously Once a day as directed 24h 20 Oct, 2016 30 days Active Seroquel 300 MG Orally Once a day 2 tablet at bedtime 24h 0 Active RESULTS Name Result Date Reference Range A1C (IN HOUSE) 2017-12-02 A1C IN HOUSE 5.7 4.3 - 5.6 % Previous A1c 58 Lot 0815 Exp date 08/08 PROCEDURES Procedure Date Ordered Result Body Site GLYCATED HEMOGLOBIN TEST December 02, 2017 INSTRUCTIONS MEDICATIONS ADMINISTERED No Known Medications MEDICAL (GENERAL) HISTORY Type Description Date Medical History schizophrenia Medical History PTSD Medical History depression Medical History mood disorder Medical History fibromyalgia Surgical History section x 2 1986,1996 Surgical History tubal ligation 1985 Surgical History cholecystectomy 2004 Surgical History tonsillectomy 1977 Surgical History hysterectomy 2009 Surgical History colonoscopy 2013 Surgical History hemorrhoidectomy 01/2017 Hospitalization History surgeries
--- OUTSIDE RECORDS SUMMARY | 2018-04-22 00:21 | XMS REPORT ---
Author Author AGUILAR SMITH [facility] Address [address] [place] [address] Care Team Providers Care Production Control Scheduler Name Role Phone AGUILAR SMITH Unavailable PROBLEMS Type Condition ICD9-CM Code ZWF61-LE Code Onset Dates Condition Status SNOMED Code Problem PTSD (post-traumatic stress disorder) F43.10 Active 86163068 Problem Psoriasis L40.9 Active 0933673 Problem Hypertriglyceridemia E78.1 Active 772030602 Problem Depression, unspecified depression type F32.9 Active 79455445 Problem Schizophrenia, unspecified type F20.9 Active 34259935 Problem Prediabetes R73.09 Active 892466251 Problem Insomnia due to other mental disorder F51.05 Active 92469784 Problem History of lump of left breast Z87.898 Active 396962266 Problem Diabetic polyneuropathy associated with type 2 diabetes mellitus E11.42 Active 65352494 Problem Type 2 diabetes mellitus without complication, without long-term current use of insulin E11.9 Active 045224649 Problem Chronic constipation K59.09 Active 027009552 Problem Hip bursitis, left M70.72 Active 06829937 ALLERGIES Substance Reaction Event Type Date Status Risperdal hives Drug Allergy Sep, Active Penicillin V Potassium rash Drug Allergy Sep, Active Iodine anaphylaxis Drug Allergy Sep, Active SOCIAL HISTORY Never Assessed PLAN OF CARE Activity Details Follow Up as schd Reason:dm VITAL SIGNS Height 66 in 2016-10-13 Weight 188 lbs 2016-10-13 Temperature 98.2 degrees Fahrenheit 2016-10-13 Heart Rate 104 bpm 2016-10-13 Respiratory Rate 20 2016-10-13 Oximetry 94 % 2016-10-13 BMI 30.34 kg/m2 2016-10-13 Blood pressure systolic 150 mmHg 2016-10-13 Blood pressure diastolic 82 mmHg 2016-10-13 MEDICATIONS Medication Instructions Dosage Frequency Start Date End Date Duration Status Lancets - as directed 24h Apr, Active MiraLax 17 gm/dose Orally twice a day 17 grams mixed in 8 oz of water or juice 12h Active Fish Oil 1000 MG Orally 3 times a day 1 capsule 8h Active Glucometer ... True Test E11.9 as directed January, Active Haloperidol 15 mg Orally 3 times a day 1 tablet 8h Active MetFORMIN HCl ER 750 MG Orally Once a day 2 tablet 24h Feb, Active Gabapentin 300 MG Orally Three times a day 1 capsule 8h 30 days Active Paxil 40 mg Orally Once a day .5 tab qd x 1 wk then 1 tablet in the morning 24h Active Ibuprofen 800 MG Orally Three times a day 1 tablet 8h 30 Active PredniSONE 10 mg Orally 2 per day 1 tablet with food or milk Sep, Sep, 05 days Active Albuterol Sulfate HFA 108 (90 Base) MCG/ACT Inhalation 4 times a day 2 puffs as needed 6h Sep, Active Seroquel 300 MG Orally Once a day 1 tab qhs x 1 wk then 2 tablet at bedtime 24h Active Test strips ... True Test Once a day, DX: E11.9 as directed Apr, Active Tricor 48 MG Orally Once a day 1 tablet 24h Active Benzonatate 100 mg Orally Three times a day 1 capsule as needed 8h Sep, Active RESULTS No Results PROCEDURES Procedure Date Ordered Result Body Site MEASURE BLOOD OXYGEN LEVEL Oct 13, 2016 IMMUNIZATIONS No Known Immunizations MEDICAL (GENERAL) HISTORY Type Description Date Medical History schizophrenia Medical History PTSD Medical History depression Medical History mood disorder Medical History fibromyalgia Surgical History section x 2 1986,1996 Surgical History tubal ligation 1986 Surgical History cholecystectomy 2005 Surgical History tonsillectomy 1978 Surgical History hysterectomy 2009 Surgical History colonoscopy 2013 Hospitalization History surgeries
--- OUTSIDE RECORDS SUMMARY | 2018-04-22 00:22 | XMS REPORT ---
Author Author AGUILAR SMITH [facility] Address [address] [place] [address] Care Team Providers Care Endocrinologist Name Role Phone SMITHAGUILAR Unavailable PROBLEMS Type Condition ICD9-CM Code JGI12-HB Code Onset Dates Condition Status SNOMED Code Problem Hypertriglyceridemia E78.1 Active 712182589 Problem Type 2 diabetes mellitus without complication, without long-term current use of insulin E11.9 Active 114256765 Problem Psoriasis L40.9 Active 1440148 Problem Depression, unspecified depression type F32.9 Active 33463109 Problem Schizophrenia, unspecified type F20.9 Active 76392279 Problem Prediabetes R73.09 Active 562320463 Problem PTSD (post-traumatic stress disorder) F43.10 Active 20179679 Problem Frequent headaches R51 Active 981706799 Problem Insomnia due to other mental disorder F51.05 Active 70518141 Problem Hip bursitis, left M70.72 Active 28114725 Problem Diabetic polyneuropathy associated with type 2 diabetes mellitus E11.42 Active 96139775 Problem History of lump of left breast Z87.898 Active 395994254 Problem Chronic constipation K59.09 Active 824684798 ALLERGIES Substance Reaction Event Type Date Status Risperdal hives Drug Allergy Jul, Active Penicillin V Potassium rash Drug Allergy Jul, Active Iodine anaphylaxis Drug Allergy Jul, Active ENCOUNTERS Encounter Location Date Diagnosis [facility] [address] [facility] [id number] [phone] Dec, Frequent headaches R51 and Insomnia due to other mental disorder F51.[address] [place] [address] [id number] Nov, Type 2 diabetes mellitus without complication, without long-term current use of insulin E11.9 ; Frequent headaches R51 and Psoriasis L40.[address] [place] [address] [id number] Sep, [facility] [id number] [phone] Sep, [facility] [id number] [place] [address] [id number] Sep, Pain in left shoulder M25.512 [facility] [id number] [place] [address], [place] [id number] Aug, Schizophrenia, unspecified type F20.9 ; Pain in left shoulder M25.512 and Pain in right shoulder M25.511 [facility] [id number] [place] [address] [id number] Aug, Schizophrenia, unspecified type F20.9 [facility] [id number] [place] [address] [id number] Jul, Diabetic polyneuropathy associated with type 2 diabetes mellitus E11.42 ; Schizophrenia, unspecified type F20.9 and Psoriasis L40.9 [facility] [place] [id number] [place] [address] [id number] Jul, Vertigo R42 [facility] [place] [id number] [place] [address] [id number] May, Vertigo R42 [facility] [id number] [place] [address] [id number] May, Diabetic polyneuropathy associated with type 2 diabetes mellitus E11.42 [facility] [id number] [place] [address] [id number] Apr, Diabetic polyneuropathy associated with type 2 diabetes mellitus E11.42 ; Insomnia due to other mental disorder F51.05 and Vertigo R42 [facility] [id number] [place] [address] [id number] Feb, Type 2 diabetes mellitus without complication, without long-term current use of insulin E11.9 and Other hemorrhoids K64.8 [facility] [id number] [place] [address] [id number] January, Well woman exam Z01.419 ; Yeast infection of the skin B37.2 and Grade III hemorrhoids K64.2 [facility] [place] [id number] [place] [address] [id number] Dec, Diabetic polyneuropathy associated with type 2 diabetes mellitus E11.42 [id number] [place] [address] [id number] Dec, Hypertriglyceridemia E78.1 ; Type 2 diabetes mellitus without complication , without long-term current use of insulin E11.9 ; Insomnia due to other mental disorder F51.05 ; Diabetic polyneuropathy associated with type 2 diabetes mellitus E11.42 ; Bronchitis J40 ; Psoriasis L40.9 ; Dermatitis L30.9 and Chronic constipation K59.09 [id number] [place] [address] [id number] Nov, Hypertriglyceridemia E78.1 and Type 2 diabetes mellitus without complication, without long-term current use of insulin E11.9 [address] [id number] [place] [address] [id number] Nov, Hyperlipidemia, unspecified hyperlipidemia type E78.[address] [id number] Oct, [address] [id number] Oct, Diabetic polyneuropathy associated with type 2 diabetes mellitus E11.42 ; Insomnia due to other mental disorder F51.05 ; Psoriasis L40.9 and Hip bursitis , left M70.72 [id number] [place] [address] [id number] Oct, [place] [place] [id number] [place] [address] [id number] Oct, Dermatitis L30.9 [address] [id number] [place] [address] [id number] Sep, Pain of left hip joint M25.552 and Insomnia due to other mental disorder F51.[address] [id number] Sep, Bronchitis J40 [address] [id number] Sep, Acute nasopharyngitis J00 ; History of wheezing Z87.898 ; Tobacco abuse Z72.0 and Tobacco abuse counseling Z71.6 [facility] [id number] [address] Sep, [facility] [id number] [id number] Sep, Type 2 diabetes mellitus without complication, without long-term current use of insulin E11.9 [facility] [address] [id number] [id number] Aug, Chronic constipation K59.09 [facility] [id number] [place] [address] [id number] Aug, Type 2 diabetes mellitus without complication, without long-term current use of insulin E11.9 [facility] [id number] [id number] Aug, [facility] [id number] [place] [address] [id number] Jul, Breast tenderness in female N64.4 ; Screening breast examination Z12.39 ; History of lump of left breast Z87.898 and Chronic constipation K59.09 [facility] [id number] [id number] Jul, Type 2 diabetes mellitus without complication, without long-term current use of insulin E11.9 ; Hip bursitis, left M70.72 ; Schizophrenia, unspecified type F20.9 and Diabetic polyneuropathy associated with type 2 diabetes mellitus E11.42 [facility] [address] [id number] [id number] Jul, [facility] [id number] [id number] Jul, Hip bursitis, left M70.72 [facility] [id number] [phone] Jun, Diabetic polyneuropathy associated with type 2 diabetes mellitus E11.42 [facility] [id number][place] [phone] Jun, [facility] [id number][place] [id number] May, Type 2 diabetes mellitus without complication, without long-term current use of insulin E11.9 [facility] [id number] [id number] May, [facility] [id number] [place] [address] [id number] May, Dermatitis L30.9 [facility] [id number] [place] [address] [id number] Apr, [facility] [id number] [place] [address] [id number] Apr, Type 2 diabetes mellitus without complication, without long-term current use of insulin E11.9 and Schizophrenia, unspecified type F20.9 [facility] [id number] [place] [address] [id number] Apr, [facility] [id number] [place] [address] [id number] Apr, [facility] [id number] [place] [address] [id number] Mar, Depression, unspecified depression type F32.9 ; Schizophrenia, unspecified type F20.9 and Psoriasis L40.9 [facility] [id number] [place] [address] [id number] Feb, Prediabetes R73.09 ; Depression, unspecified depression type F32.9 ; Schizophrenia, unspecified type F20.9 and Hypertriglyceridemia E78.1 [facility] [id number] [place] [address] [id number] January, Hyperlipidemia, unspecified hyperlipidemia type E78.5 [address] [place] [address] [id number] January, Schizophrenia, unspecified type F20.9 ; Depression, unspecified depression type F32.9 ; PTSD (post-traumatic stress disorder) F43.10 and Prediabetes R73.09 IMMUNIZATIONS No Known Immunizations SOCIAL HISTORY Never Assessed REASON FOR VISIT CHM- Diabetes visit Wiliam OREILLY PLAN OF CARE Activity Details Follow Up 4 Weeks Reason:hallucinations VITAL SIGNS Height 66 in 2017-08-17 Weight 159.6 lbs 2017-08-17 Temperature 98.3 degrees Fahrenheit 2017-08-17 Heart Rate 88 bpm 2017-08-17 Respiratory Rate 16 2017-08-17 BMI 25.76 kg/m2 2017-08-17 Blood pressure systolic 116 mmHg 2017-08-17 Blood pressure diastolic 74 mmHg 2017-08-17 MEDICATIONS Medication Instructions Dosage Frequency Start Date End Date Duration Status TRUEplus Lancets 28G - DX: E11:9 Once a day .... 24h Active Haloperidol 10 MG Orally 3 times a day 1 1/2 tablets am/ pm 1 tab midday 8h Active Meloxicam 15 MG Orally Once a day 1 tablet 24h 0 Active Paxil 40 mg Orally Once a day 1 tablet in the morning 24h Active Glucometer ... True Test E11.9 as directed January, Active Nystatin-Triamcinolone 735941-4.1 UNIT/GM Externally Twice a day 1 application to affected area 12h January, Not-Taking Fish Oil 1000 MG Orally 3 times a day 1 capsule 8h Not-Taking MetFORMIN HCl ER 750 mg Orally Once a day 2 tablet 24h Active ProAir HFA 108 (90 Base) MCG/ACT Inhalation every 4 hrs 2 puffs as needed 4h Active Seroquel 300 MG Orally Once a day 2 tablet at bedtime 24h Active Tricor 145 MG Orally Once a day 1 tablet 24h Not-Taking True Metrix Blood Glucose Test - True Metrix Once a day, DX: E11.9 .... Active Proctozone-HC 2.5 % APPLY TO THE AFFECTED AREA TWICE DAILY. Not-Taking Gabapentin 400 MG Orally Three times a day 1 capsule 8h Active Trazodone HCl 50 mg Orally Once a day 1.5 tablet at bedtime as needed 24h Active MiraLax - Orally twice a day 17 grams mixed in 8 oz of water or juice 12h Not-Taking Victoza 18 MG/3ML Subcutaneous Once a day .6 mg 24h Active Meclizine HCl 25 MG Orally 3 times a day 1 tablet as needed 8h 10 Apr, 2017 0 days Not-Taking Hydrocortisone 2.5 % Externally Twice a day 1 application to affected area 12h May, Active BD Pen Needle Ultrafine 29G X 12.7MM subcutaneously Once a day as directed 24h Oct, 30 days Active RESULTS Name Result Date Reference Range A1C (IN HOUSE) 2017-08-17 A1C IN HOUSE 5.8 4.3 - 5.6 % Previous A1c 5.8 Lot [id number] Exp date 04/2019 PROCEDURES Procedure Date Ordered Result Body Site GLYCATED HEMOGLOBIN TEST Aug 17, 2017 INSTRUCTIONS MEDICATIONS ADMINISTERED No Known Medications [...]
--- OUTSIDE RECORDS SUMMARY | 2018-04-22 00:22 | XMS REPORT ---
Author Author BHAVANI ESTEBAN [facility] Address [address] [place] [address] Care Team Providers Care Curtain Cleaner Name Role Phone BHAVANI ESTEBAN Unavailable PROBLEMS Type Condition ICD9-CM Code FVJ30-WB Code Onset Dates Condition Status SNOMED Code Problem PTSD (post-traumatic stress disorder) F43.10 Active 21237008 Problem Psoriasis L40.9 Active 5246843 Problem Hypertriglyceridemia E78.1 Active 463399839 Problem Depression, unspecified depression type F32.9 Active 29985132 Problem Schizophrenia, unspecified type F20.9 Active 47386467 Problem Prediabetes R73.09 Active 577224632 Problem Insomnia due to other mental disorder F51.05 Active 27085965 Problem History of lump of left breast Z87.898 Active 526690216 Problem Diabetic polyneuropathy associated with type 2 diabetes mellitus E11.42 Active 48327435 Problem Type 2 diabetes mellitus without complication, without long-term current use of insulin E11.9 Active 962589902 Problem Chronic constipation K59.09 Active 223670886 Problem Hip bursitis, left M70.72 Active 67488270 ALLERGIES Substance Reaction Event Type Date Status Risperdal hives Drug Allergy Aug, Active Penicillin V Potassium rash Drug Allergy Aug, Active Iodine anaphylaxis Drug Allergy Aug, Active SOCIAL HISTORY No smoking Hx information available PLAN OF CARE Activity Details Follow Up with PCP, prn Reason: VITAL SIGNS Height 66 in 2016-09-15 Weight 181.8 lbs 2016-09-15 Temperature 98.1 degrees Fahrenheit 2016-09-15 Heart Rate 88 bpm 2016-09-15 Respiratory Rate 16 2016-09-15 BMI 29.34 kg/m2 2016-09-15 Blood pressure systolic 122 mmHg 2016-09-15 Blood pressure diastolic 68 mmHg 2016-09-15 MEDICATIONS Medication Instructions Dosage Frequency Start Date End Date Duration Status Haloperidol 15 mg Orally 3 times a day 1 tablet 8h Active Gabapentin 300 MG Orally Three times a day 1 capsule 1 tab qhs x 5 d then bid x 5 d then tid 8h Active Paxil 40 mg Orally Once a day .5 tab qd x 1 wk then 1 tablet in the morning 24h Active Lancets - as directed 24h Apr, Active Glucometer ... True Test E11.9 as directed January, Active Fish Oil 1000 MG Orally 3 times a day 1 capsule 8h Active Seroquel 300 MG Orally Once a day 1 tab qhs x 1 wk then 2 tablet at bedtime 24h Active Ibuprofen 800 MG Orally Three times a day 1 tablet 8h 30 Active Tricor 48 MG Orally Once a day 1 tablet 24h Active Test strips ... True Test Once a day, DX: E11.9 as directed Apr, Active MetFORMIN HCl ER 750 MG Orally Once a day 2 tablet 24h 14 Feb, 2016 Active MiraLax 17 gm/dose Orally twice a day 17 grams mixed in 8 oz of water or juice 12h Active RESULTS No Results PROCEDURES Procedure Date Ordered Related Diagnosis Body Site Office Visit, Est Pt., Level 3 Sep 15, 2016 IMMUNIZATIONS No Known Immunizations
--- OUTSIDE RECORDS SUMMARY | 2018-04-22 00:22 | XMS REPORT ---
Author Author AGUILAR SMITH [facility] Address [address] [place] [address] Care Team Providers Care Sanitation Tank Washer Name Role Phone AGUILAR SMITH Unavailable PROBLEMS Type Condition ICD9-CM Code [id number] Code Onset Dates Condition Status SNOMED Code Problem Depression, unspecified depression type F32.9 Active 15193866 Problem Hypertriglyceridemia E78.1 Active 651740795 Problem Schizophrenia, unspecified type F20.9 Active 94546655 Problem Prediabetes R73.09 Active 386843277 Problem PTSD (post-traumatic stress disorder) F43.10 Active 37039679 Problem Chronic constipation K59.09 Active 365659946 Problem History of lump of left breast Z87.898 Active 138019414 Problem Type 2 diabetes mellitus without complication, without long-term current use of insulin E11.9 Active 843774448 Problem Psoriasis L40.9 Active 1268229 Problem Hip bursitis, left M70.72 Active 37585539 Problem Diabetic polyneuropathy associated with type 2 diabetes mellitus E11.42 Active 60601249 ALLERGIES Unknown Allergies SOCIAL HISTORY No smoking Hx information available PLAN OF CARE VITAL SIGNS MEDICATIONS Medication Instructions Dosage Frequency Start Date End Date Duration Status Tricor 48 MG Orally Once a day 1 tablet 24h Active RESULTS No Results PROCEDURES No Known procedures IMMUNIZATIONS No Known Immunizations
--- OUTSIDE RECORDS SUMMARY | 2018-04-22 00:22 | XMS REPORT ---
Author Author BHAVANI ESTEBAN [facility] Address [address] [place] [address] Care Team Providers Care Reporting Developer Name Role Phone BHAVANI ESTEBAN Unavailable PROBLEMS Type Condition ICD9-CM Code [id number] Code Onset Dates Condition Status SNOMED Code Problem Schizophrenia, unspecified type F20.9 Active 31639177 Problem Psoriasis L40.9 Active 4588436 Problem Hypertriglyceridemia E78.1 Active 944299273 Problem Prediabetes R73.09 Active 833150647 Problem PTSD (post-traumatic stress disorder) F43.10 Active 05985994 Problem Depression, unspecified depression type F32.9 Active 77312488 Problem Insomnia due to other mental disorder F51.05 Active 23209907 Problem Chronic constipation K59.09 Active 626497586 Problem Diabetic polyneuropathy associated with type 2 diabetes mellitus E11.42 Active 38370243 Problem Type 2 diabetes mellitus without complication, without long-term current use of insulin E11.9 Active 715797561 Problem History of lump of left breast Z87.898 Active 791035879 Problem Hip bursitis, left M70.72 Active 57298247 ALLERGIES Substance Reaction Event Type Date Status Risperdal hives Drug Allergy Jul, Active Penicillin V Potassium rash Drug Allergy Jul, Active Iodine anaphylaxis Drug Allergy Jul, Active SOCIAL HISTORY No smoking Hx information available PLAN OF CARE Activity Details Follow Up 4 Weeks Reason:with PCP VITAL SIGNS Height 66 in 2016-08-14 Weight 180.4 lbs 2016-08-14 Temperature 98.1 degrees Fahrenheit 2016-08-14 Heart Rate 91 bpm 2016-08-14 Respiratory Rate 18 2016-08-14 BMI 29.11 kg/m2 2016-08-14 Blood pressure systolic 124 mmHg 2016-08-14 Blood pressure diastolic 64 mmHg 2016-08-14 MEDICATIONS Medication Instructions Dosage Frequency Start Date End Date Duration Status Test strips ... True Test Once a day, DX: E11.9 as directed Apr, Active Lancets - as directed 24h Apr, Active Tricor 48 MG Orally Once a day 1 tablet 24h Active MiraLax 17 gm/dose Orally twice a day 17 grams mixed in 8 oz of water or juice 12h Jul, Active Ibuprofen 800 MG Orally Three times a day 1 tablet 8h Jul, Aug, Active Gabapentin 300 MG Orally Three times a day 1 capsule 1 tab qhs x 5 d then bid x 5 d then tid 8h Active Fish Oil 1000 MG Orally 3 times a day 1 capsule 8h Active Paxil 40 mg Orally Once a day .5 tab qd x 1 wk then 1 tablet in the morning 24h Active Haloperidol 15 mg Orally 3 times a day 1 tablet 8h Active Glucometer ... True Test E11.9 as directed January, Active MetFORMIN HCl ER 750 MG Orally Once a day 2 tablet 24h Feb, Active Seroquel 300 MG Orally Once a day 1 tab qhs x 1 wk then 2 tablet at bedtime 24h Active RESULTS No Results PROCEDURES Procedure Date Ordered Related Diagnosis Body Site Office Visit, Est Pt., Level 3 Aug 14, 2016 IMMUNIZATIONS No Known Immunizations
--- OUTSIDE RECORDS SUMMARY | 2018-04-22 00:22 | XMS REPORT ---
Author Author AGUILAR SMITH [facility] Address [address] [place] [address] Care Team Providers Care Director Of Pharmacy Name Role Phone AGUILAR SMITH Unavailable PROBLEMS Type Condition ICD9-CM Code [id number] Code Onset Dates Condition Status SNOMED Code Problem Hypertriglyceridemia E78.1 Active 603839285 Problem Type 2 diabetes mellitus without complication, without long-term current use of insulin E11.9 Active 943534993 Problem Psoriasis L40.9 Active 3975740 Problem Depression, unspecified depression type F32.9 Active 37301328 Problem Schizophrenia, unspecified type F20.9 Active 00667201 Problem Prediabetes R73.09 Active 754989268 Problem PTSD (post-traumatic stress disorder) F43.10 Active 63250419 Problem Frequent headaches R51 Active 622020682 Problem Insomnia due to other mental disorder F51.05 Active 27438386 Problem Hip bursitis, left M70.72 Active 53607285 Problem Diabetic polyneuropathy associated with type 2 diabetes mellitus E11.42 Active 95721492 Problem History of lump of left breast Z87.898 Active 381861649 Problem Chronic constipation K59.09 Active 677420683 ALLERGIES Substance Reaction Event Type Date Status Risperdal hives Drug Allergy Feb, Active Penicillin V Potassium rash Drug Allergy Feb, Active Iodine anaphylaxis Drug Allergy Feb, Active ENCOUNTERS Encounter Location Date Diagnosis [facility] [address] [facility] [id number] [id number] Dec, [address] [id number] Nov, Type 2 diabetes mellitus without complication, without long-term current use of insulin E11.9 ; Frequent headaches R51 and Psoriasis L40.9 [facility] [address] [id number] [id number] Sep, [id number] [place] [address] [id number] Sep, [facility] [id number] [place] [address] [id number] Sep, Pain in left shoulder M25.512 [facility] [id number] [place] [address] [id number] Aug, Schizophrenia, unspecified type F20.9 ; Pain in left shoulder M25.512 and Pain in right shoulder M25.511 [facility] [id number] [place] [address] [id number] Aug, Schizophrenia, unspecified type F20.9 [facility] [facility] [id number] [place] [address] [id number] Jul, Diabetic polyneuropathy associated with type 2 diabetes mellitus E11.42 ; Schizophrenia, unspecified type F20.9 and Psoriasis L40.9 [place] [id number] [place] [address] [id number] Jul, Vertigo R42 [facility] [id number] [place] [address] [id number] May, Vertigo R42 [place] [id number] [place] [address] [id number] May, Diabetic polyneuropathy associated with type 2 diabetes mellitus E11.42 [place] [id number] [place] [address] [id number] Apr, Diabetic polyneuropathy associated with type 2 diabetes mellitus E11.42 ; Insomnia due to other mental disorder F51.05 and Vertigo R42 [place] [id number] [place] [address] [id number] Feb, Type 2 diabetes mellitus without complication, without long-term current use of insulin E11.9 and Other hemorrhoids K64.8 [place] [id number] [place] [address] [id number] January, Well woman exam Z01.419 ; Yeast infection of the skin B37.2 and Grade III hemorrhoids K64.2 [facility] [id number] [place] [address] [id number] Dec, Diabetic polyneuropathy associated with type 2 diabetes mellitus E11.42 [place] [id number] [place] [address] [id number] Dec, Hypertriglyceridemia E78.1 ; Type 2 diabetes mellitus without complication , without long-term current use of insulin E11.9 ; Insomnia due to other mental disorder F51.05 ; Diabetic polyneuropathy associated with type 2 diabetes mellitus E11.42 ; Bronchitis J40 ; Psoriasis L40.9 ; Dermatitis L30.9 and Chronic constipation K59.[address] [id number] Nov, Hypertriglyceridemia E78.1 and Type 2 diabetes mellitus without complication, without long-term current use of insulin E11.9 [place] [id number] [place] [address] [id number] Nov, Hyperlipidemia, unspecified hyperlipidemia type E78.[address] [id number] Oct, [address] [id number] Oct, Diabetic polyneuropathy associated with type 2 diabetes mellitus E11.42 ; Insomnia due to other mental disorder F51.05 ; Psoriasis L40.9 and Hip bursitis , left M70.72 [place] [id number] [place] [address] [id number] Oct, [place] [id number] [place] [address] [id number] Oct, Dermatitis L30.9 [place] [id number] [place] [address] [id number] Sep, Pain of left hip joint M25.552 and Insomnia due to other mental disorder F51.05 [place] [id number] [place] [address] [id number] Sep, Bronchitis J40 [address] [id number] Sep, Acute nasopharyngitis J00 ; History of wheezing Z87.898 ; Tobacco abuse Z72.0 and Tobacco abuse counseling Z71.6 [facility] [id number] [place] [phone] Sep, [facility] [id number] [place] [address] [id number] Sep, Type 2 diabetes mellitus without complication, without long-term current use of insulin E11.9 [facility] [id number] [place] [address] [id number] Aug, Chronic constipation K59.09 [facility] [id number] [place] [address] [id number] Aug, Type 2 diabetes mellitus without complication, without long-term current use of insulin E11.9 [facility] [id number] [place] [address] [id number] Aug, [facility] [id number] [place] [address] [id number] Jul, Breast tenderness in female N64.4 ; Screening breast examination Z12.39 ; History of lump of left breast Z87.898 and Chronic constipation K59.09 [facility] [id number] [place] [address] [id number] Jul, Type 2 diabetes mellitus without complication, without long-term current use of insulin E11.9 ; Hip bursitis, left M70.72 ; Schizophrenia, unspecified type F20.9 and Diabetic polyneuropathy associated with type 2 diabetes mellitus E11.42 [facility] [id number] [place] [address] [id number] Jul, [facility] [id number] [place] [address] [id number] Jul, Hip bursitis, left M70.72 [facility] [id number] [place] [address] [id number] Jun, Diabetic polyneuropathy associated with type 2 diabetes mellitus E11.42 [facility] [id number] [place] [address] [id number] Jun, [facility] [id number] [place] [address] [id number] May, Type 2 diabetes mellitus without complication, without long-term current use of insulin E11.9 [facility] [id number] [place] [address] [id number] May, [address] [id number] May, Dermatitis L30.9 [place] [id number] [place] [address] [id number] Apr, [place] [id number] [place] [address] [id number] Apr, Type 2 diabetes mellitus without complication, without long-term current use of insulin E11.9 and Schizophrenia, unspecified type F20.9 [address] [place] [address] [id number] Apr, [place] [id number] [place] [address] [id number] Apr, [place] [id number] [place] [address] [id number] Mar, Depression, unspecified depression type F32.9 ; Schizophrenia, unspecified type F20.9 and Psoriasis L40.[address] [place] [address] [id number] Feb, Prediabetes R73.09 ; Depression, unspecified depression type F32.9 ; Schizophrenia, unspecified type F20.9 and Hypertriglyceridemia E78.[address] [place] [address] [id number] January, Hyperlipidemia, unspecified hyperlipidemia type E78.5 [place] [id number] [place] [address] [id number] January, Schizophrenia, unspecified type F20.9 ; Depression, unspecified depression type F32.9 ; PTSD (post-traumatic stress disorder) F43.10 and Prediabetes R73.09 IMMUNIZATIONS No Known Immunizations SOCIAL HISTORY Never Assessed REASON FOR VISIT hemorrhoids , diabetes follow up Madhuri RAINEY PLAN OF CARE Activity Details Follow Up 3 Months Reason:dm VITAL SIGNS Height 66 in 2017-03-02 Weight 166.6 lbs 2017-03-02 Temperature 98.6 degrees Fahrenheit 2017-03-02 Heart Rate 100 bpm 2017-03-02 Respiratory Rate 16 2017-03-02 BMI 26.89 kg/m2 2017-03-02 Blood pressure systolic 114 mmHg 2017-03-02 Blood pressure diastolic 64 mmHg 2017-03-02 MEDICATIONS Medication Instructions Dosage Frequency Start Date End Date Duration Status Paxil 40 mg Orally Once a day 1 tablet in the morning 24h Active Tricor 145 MG Orally Once a day 1 tablet 24h Active Anusol HC-1 1 % Externally Twice a day 1 application to affected area 12h 13 Feb, 2017 Active Fish Oil 1000 MG Orally 3 times a day 1 capsule 8h Active Meloxicam 15 MG Orally Once a day 1 tablet 24h 0 Active True Metrix Blood Glucose Test - True Metrix Once a day, DX: E11.9 .... Active Haloperidol 5 MG Orally 3 times a day 3 tablet 8h Active Seroquel 300 MG Orally Once a day 2 tablet at bedtime 24h Active ProAir HFA 108 (90 Base) MCG/ACT Inhalation every 4 hrs 2 puffs as needed 4h 07 Dec, 2016 Active BD Pen Needle Ultrafine 29G X 12.7MM subcutaneously Once a day as directed 24h 20 Oct, 2016 30 days Active Victoza 18 MG/3ML Subcutaneous Once a day .6 mg 24h Active Nystatin-Triamcinolone 151207-5.1 UNIT/GM Externally Twice a day 1 application to affected area 12h January, Active Trazodone HCl 50 mg Orally Once a day .5-1 tablet at bedtime as needed 24h 30 Active MetFORMIN HCl ER 750 MG Orally Once a day 2 tablet 24h 14 Feb, 2016 Active TRUEplus Lancets 28G - DX: E11:9 Once a day .... 24h Active Glucometer ... True Test E11.9 as directed January, Active Gabapentin 300 MG Orally Three times a day 1 capsule 8h Active RESULTS Name Result Date Reference Range A1C (IN HOUSE) 2017-03-02 A1C IN HOUSE 5.8 4.3 - 5.6 % Previous A1c 8.0 Lot [id number] Exp date 12/06 PROCEDURES Procedure Date Ordered Result Body Site GLYCATED HEMOGLOBIN TEST March 02, 2017 INSTRUCTIONS MEDICATIONS ADMINISTERED No Known [...]
--- OUTSIDE RECORDS SUMMARY | 2018-04-22 00:22 | XMS REPORT ---
Author Author AGUILAR SMITH [facility] Address [address] [place] [address] Care Team Providers Care Diesel Engine Mechanic Apprentice Name Role Phone AGUILAR SMITH Unavailable PROBLEMS Type Condition ICD9-CM Code [id number] Code Onset Dates Condition Status SNOMED Code Problem Schizophrenia, unspecified type F20.9 Active 88470446 Problem Psoriasis L40.9 Active 3475350 Problem Hypertriglyceridemia E78.1 Active 653784477 Problem Prediabetes R73.09 Active 949202403 Problem PTSD (post-traumatic stress disorder) F43.10 Active 77898293 Problem Depression, unspecified depression type F32.9 Active 28293249 Problem Insomnia due to other mental disorder F51.05 Active 87558671 Problem Chronic constipation K59.09 Active 493924524 Problem Diabetic polyneuropathy associated with type 2 diabetes mellitus E11.42 Active 30664664 Problem Type 2 diabetes mellitus without complication, without long-term current use of insulin E11.9 Active 779483675 Problem History of lump of left breast Z87.898 Active 022038236 Problem Hip bursitis, left M70.72 Active 02820705 ALLERGIES No Known Allergies SOCIAL HISTORY No smoking Hx information available PLAN OF CARE VITAL SIGNS MEDICATIONS Medication Instructions Dosage Frequency Start Date End Date Duration Status MetFORMIN HCl ER 750 MG Orally Once a day 2 tablet 24h Feb, Active RESULTS No Results PROCEDURES No Known procedures IMMUNIZATIONS No Known Immunizations
--- OUTSIDE RECORDS SUMMARY | 2018-04-22 00:22 | XMS REPORT ---
Author Author BHAVANI ESTEBAN [facility] Address [address] [place] [address] Care Team Providers Care Environmental Program Manager Name Role Phone BHAVANI ESTEBAN Unavailable PROBLEMS Type Condition ICD9-CM Code LAN24-KX Code Onset Dates Condition Status SNOMED Code Problem PTSD (post-traumatic stress disorder) F43.10 Active 32838924 Problem Psoriasis L40.9 Active 0994797 Problem Hypertriglyceridemia E78.1 Active 422467891 Problem Depression, unspecified depression type F32.9 Active 62147167 Problem Schizophrenia, unspecified type F20.9 Active 18157242 Problem Prediabetes R73.09 Active 416354432 Problem Insomnia due to other mental disorder F51.05 Active 65989633 Problem History of lump of left breast Z87.898 Active 908762520 Problem Diabetic polyneuropathy associated with type 2 diabetes mellitus E11.42 Active 88962352 Problem Type 2 diabetes mellitus without complication, without long-term current use of insulin E11.9 Active 913079736 Problem Chronic constipation K59.09 Active 331358370 Problem Hip bursitis, left M70.72 Active 90875443 ALLERGIES Substance Reaction Event Type Date Status Risperdal hives Drug Allergy Sep, Active Penicillin V Potassium rash Drug Allergy Sep, Active Iodine anaphylaxis Drug Allergy Sep, Active SOCIAL HISTORY No smoking Hx information available PLAN OF CARE Activity Details Follow Up 2 - 3 Days with PCP Reason:if s/s not improving VITAL SIGNS Height 66 in 2016-09-28 Weight 188.8 lbs 2016-09-28 Temperature 98.7 degrees Fahrenheit 2016-09-28 Heart Rate 110 bpm 2016-09-28 Respiratory Rate 20 2016-09-28 BMI 30.47 kg/m2 2016-09-28 Blood pressure systolic 150 mmHg 2016-09-28 Blood pressure diastolic 82 mmHg 2016-09-28 MEDICATIONS Medication Instructions Dosage Frequency Start Date End Date Duration Status MiraLax 17 gm/dose Orally twice a day 17 grams mixed in 8 oz of water or juice 12h Active Fish Oil 1000 MG Orally 3 times a day 1 capsule 8h Active ProAir RespiClick 108 (90 Base) MCG/ACT Inhalation every 4 hrs 1 puff as needed 4h Sep, 0 days Active Gabapentin 300 MG Orally Three times a day 1 capsule 8h 30 days Active Test strips ... True Test Once a day, DX: E11.9 as directed Apr, Active Delsym Cough/Chest Congest DM 5-100 MG/5ML Orally every 4 hrs as needed for cough 10 ml Sep, Sep, 07 days Active MetFORMIN HCl ER 750 MG Orally Once a day 2 tablet 24h Feb, Active Lancets - as directed 24h Apr, Active Seroquel 300 MG Orally Once a day 1 tab qhs x 1 wk then 2 tablet at bedtime 24h Active Paxil 40 mg Orally Once a day .5 tab qd x 1 wk then 1 tablet in the morning 24h Active Haloperidol 15 mg Orally 3 times a day 1 tablet 8h Active Glucometer ... True Test E11.9 as directed January, Active Ibuprofen 800 MG Orally Three times a day 1 tablet 8h 30 Active Tricor 48 MG Orally Once a day 1 tablet 24h Active RESULTS No Results PROCEDURES Procedure Date Ordered Related Diagnosis Body Site Office Visit, Est Pt., Level 3 Sep 28, 2016 IMMUNIZATIONS No Known Immunizations
--- OUTSIDE RECORDS SUMMARY | 2018-04-22 00:22 | XMS REPORT ---
Author Author AGUILAR SMITH [facility] e[employer] Address Unknown Phone Unavailable Care Team Providers Care Paramedic Instructor Name Role Phone AGUILAR SMITH CP Unavailable Allergies, Adverse Reactions, Alerts Substance Reaction Event Type Risperdal hives Drug Allergy Penicillin V Potassium rash Drug Allergy Iodine anaphylaxis Drug Allergy Problems Problem Type Condition Code Onset Dates Condition Status Problem Prediabetes R73.09 Active Assessment Diabetic polyneuropathy associated with type 2 diabetes mellitus E11.42 Active Problem Type 2 diabetes mellitus without complication, without long-term current use of insulin E11.9 Active Problem Psoriasis L40.9 Active Problem Diabetic polyneuropathy associated with type 2 diabetes mellitus E11.42 Active Problem Depression, unspecified depression type F32.9 Active Problem PTSD (post-traumatic stress disorder) F43.10 Active Problem Hypertriglyceridemia E78.1 Active Problem Schizophrenia, unspecified type F20.9 Active Medications Medication Code System Code Instructions Start Date End Date Status Dosage Lancets [facility] [id number] - Once a day May 19, 2016 as directed Test strips NDC 0 ... True Test Once a day, DX: E11.9 May 19, 2016 as directed Fish Oil FOR[facility] NAMED [facility] [address]-77 1000 MG Orally 3 times a day 1 capsule Seroquel [facility] NAMED [facility] [address]-08 300 MG Orally Once a day 2 tablet at bedtime Haloperidol [facility] NAMED [facility] [address]-61 15 mg Orally 3 times a day 1 tablet Glucometer NDC 0 ... True Test E11.9 February 11, 2016 as directed MetFORMIN HCl ER [facility]ED [facility] [address]-15 500 MG Orally Once a day March 03, 2016 1 tablet Hydrocortisone [facility] NAMED [facility] [address]-86 2.5 % Externally Twice a day May 22, 2016 1 application to affected area Gabapentin [facility] N[facility] [address]-83 300 MG Orally Three times a day Jul 07, 2016 1 capsule 1 tab qhs x 5 d then bid x 5 d then tid Tricor [facility] [address]-09 48 MG Orally Once a day February 13, 2016 1 tablet Paxil [facility] NAMED [facility] [address]-15 40 mg Orally Once a day 1 tablet in the morning Procedures Procedure Coding System Code Date Office Visit, Est Pt., Level 3 CPT-4 35823 Jul 07, 2016 Vital Signs Date/Time: Jul 07, 2016 Cardiac Monitoring Heart Rate 82 bpm Weight 178 lbs Height 66 in BMI 28.73 Index Results No Known Results Summary Purpose eClinicalWorks Submission
--- OUTSIDE RECORDS SUMMARY | 2018-04-22 00:23 | XMS REPORT ---
Author Author AGUILAR SMITH [facility] Address [address] [place] [address] Care Team Providers Care Metal Drill Press Operator Name Role Phone SMITHAGUILAR Unavailable PROBLEMS Type Condition ICD9-CM Code [id number] Code Onset Dates Condition Status SNOMED Code Problem PTSD (post-traumatic stress disorder) F43.10 Active 26234394 Problem Psoriasis L40.9 Active 9765733 Problem Hypertriglyceridemia E78.1 Active 937742874 Problem Depression, unspecified depression type F32.9 Active 03737226 Problem Schizophrenia, unspecified type F20.9 Active 96078422 Problem Prediabetes R73.09 Active 498841203 Problem Insomnia due to other mental disorder F51.05 Active 83176714 Problem History of lump of left breast Z87.898 Active 179534088 Problem Diabetic polyneuropathy associated with type 2 diabetes mellitus E11.42 Active 96872850 Problem Type 2 diabetes mellitus without complication, without long-term current use of insulin E11.9 Active 328313906 Problem Chronic constipation K59.09 Active 749973253 Problem Hip bursitis, left M70.72 Active 47204580 ALLERGIES No Information SOCIAL HISTORY Never Assessed PLAN OF CARE VITAL SIGNS MEDICATIONS Unknown Medications RESULTS Name Result Date Reference Range LIPID PANEL 2016-11-20 Cholesterol, Total 152 100-199 Triglycerides 314 0-149 HDL Cholesterol 13 >39 VLDL Cholesterol Dat 63 5-40 LDL Cholesterol Calc 76 0-99 Comment: CMP 2016-11-20 Glucose, Serum 150 65-99 BUN 7 6-24 Creatinine, Serum 0.92 0.57-1.00 eGFR If NonAfricn Am 74 >59 eGFR If Africn Am 85 >59 BUN/Creatinine Ratio 8 9-23 Sodium, Serum 141 134-144 Potassium, Serum 4.2 3.5-5.2 Chloride, Serum 103 96-106 Carbon Dioxide, Total 23 18-29 Calcium, Serum 9.3 8.7-10.2 Protein, Total, Serum 6.6 6.0-8.5 Albumin, Serum 4.0 3.5-5.5 Globulin, Total 2.6 1.5-4.5 A/G Ratio 1.5 1.1-2.5 Bilirubin, Total <0.2 0.0-1.2 Alkaline Phosphatase, S 72 39-117 AST (SGOT) 31 0-40 ALT (SGPT) 28 0-32 PROCEDURES Procedure Date Ordered Result Body Site LIPID PANEL November 20, 2016 COMPREHEN METABOLIC PANEL November 20, 2016 VENIPUNCT, ROUTINE* November 20, 2016 IMMUNIZATIONS No Known Immunizations MEDICAL (GENERAL) HISTORY Type Description Date Medical History schizophrenia Medical History PTSD Medical History depression Medical History mood disorder Medical History fibromyalgia Surgical History section x 2 1986,1996 Surgical History tubal ligation 1986 Surgical History cholecystectomy 2004 Surgical History tonsillectomy 1978 Surgical History hysterectomy 2009 Surgical History colonoscopy 2013 Hospitalization History surgeries
--- OUTSIDE RECORDS SUMMARY | 2018-04-22 00:23 | XMS REPORT ---
Author Author AGUILAR SMITH [facility] Address [address] [place] [address] Care Team Providers Care Gas Engine Operator Generators Name Role Phone AGUILAR SMITH Unavailable PROBLEMS Type Condition ICD9-CM Code EAZ53-IT Code Onset Dates Condition Status SNOMED Code Problem PTSD (post-traumatic stress disorder) F43.10 Active 86465999 Problem Psoriasis L40.9 Active 4211636 Problem Hypertriglyceridemia E78.1 Active 962120926 Problem Depression, unspecified depression type F32.9 Active 35061899 Problem Schizophrenia, unspecified type F20.9 Active 28805581 Problem Prediabetes R73.09 Active 559044030 Problem Insomnia due to other mental disorder F51.05 Active 58926982 Problem History of lump of left breast Z87.898 Active 927193859 Problem Diabetic polyneuropathy associated with type 2 diabetes mellitus E11.42 Active 64489449 Problem Type 2 diabetes mellitus without complication, without long-term current use of insulin E11.9 Active 214720335 Problem Chronic constipation K59.09 Active 287051492 Problem Hip bursitis, left M70.72 Active 99282496 ALLERGIES Unknown Allergies SOCIAL HISTORY No smoking Hx information available PLAN OF CARE VITAL SIGNS MEDICATIONS Medication Instructions Dosage Frequency Start Date End Date Duration Status Hydrocortisone 2.5 % Externally Twice a day 1 application to affected area 12May, Active RESULTS No Results PROCEDURES No Known procedures IMMUNIZATIONS No Known Immunizations
--- OUTSIDE RECORDS SUMMARY | 2018-04-22 00:23 | XMS REPORT ---
Author Author AGUILAR SMITH [facility] Address [address] [place] [address] Care Team Providers Care Lock Setter Name Role Phone AGUILAR SMITH Unavailable PROBLEMS Type Condition ICD9-CM Code QVD21-HN Code Onset Dates Condition Status SNOMED Code Problem Hypertriglyceridemia E78.1 Active 756257399 Problem Type 2 diabetes mellitus without complication, without long-term current use of insulin E11.9 Active 372488362 Problem Psoriasis L40.9 Active 7130241 Problem Depression, unspecified depression type F32.9 Active 47604157 Problem Schizophrenia, unspecified type F20.9 Active 85083874 Problem Prediabetes R73.09 Active 295542549 Problem PTSD (post-traumatic stress disorder) F43.10 Active 45719850 Problem Frequent headaches R51 Active 610792852 Problem Insomnia due to other mental disorder F51.05 Active 28835840 Problem Hip bursitis, left M70.72 Active 50591825 Problem Diabetic polyneuropathy associated with type 2 diabetes mellitus E11.42 Active 55304546 Problem History of lump of left breast Z87.898 Active 431361354 Problem Chronic constipation K59.09 Active 004919796 ALLERGIES No Information ENCOUNTERS Encounter Location Date Diagnosis [address] [id number] Dec, Frequent headaches R51 and Insomnia due to other mental disorder F51.05 [address] [id number] Nov, Type 2 diabetes mellitus without complication, without long-term current use of insulin E11.9 ; Frequent headaches R51 and Psoriasis L40.9 [address] [id number] Sep, [address] [id number] Sep, [place] [id number] [place] [address] [id number] Sep, Pain in left shoulder M25.512 [facility] [place] [id number] [place] [address] [id number] Aug, Schizophrenia, unspecified type F20.9 ; Pain in left shoulder M25.512 and Pain in right shoulder M25.511 [facility] [place] [id number] [place] [address] [id number] Aug, Schizophrenia, unspecified type F20.9 [facility] [place] [id number] [place] [address] [id number] Jul, Diabetic polyneuropathy associated with type 2 diabetes mellitus E11.42 ; Schizophrenia, unspecified type F20.9 and Psoriasis L40.9 [place] [id number] [place] [address] [id number] Jul, Vertigo R42 [place] [id number] [place] [address] [id number] May, Vertigo R42 [place] [id number] [place] [address] [id number] May, Diabetic polyneuropathy associated with type 2 diabetes mellitus E11.42 [place] [id number] [place] [address] [id number] Apr, Diabetic polyneuropathy associated with type 2 diabetes mellitus E11.42 ; Insomnia due to other mental disorder F51.05 and Vertigo R42 [place] [id number] [place] [address] [id number] Feb, Type 2 diabetes mellitus without complication, without long-term current use of insulin E11.9 and Other hemorrhoids K64.8 [address] [place] [address] [id number] January, Well woman exam Z01.419 ; Yeast infection of the skin B37.2 and Grade III hemorrhoids K64.2 [place] [id number] [place] [address] [id number] Dec, Diabetic polyneuropathy associated with type 2 diabetes mellitus E11.42 [place] [id number] [place] [address] [id number] Dec, Hypertriglyceridemia E78.1 ; Type 2 diabetes mellitus without complication , without long-term current use of insulin E11.9 ; Insomnia due to other mental disorder F51.05 ; Diabetic polyneuropathy associated with type 2 diabetes mellitus E11.42 ; Bronchitis J40 ; Psoriasis L40.9 ; Dermatitis L30.9 and Chronic constipation K59.09 [facility] [id number] [place] [address] [id number] Nov, Hypertriglyceridemia E78.1 and Type 2 diabetes mellitus without complication, without long-term current use of insulin E11.9 [place] [id number] [place] [address] [id number] Nov, Hyperlipidemia, unspecified hyperlipidemia type E78.[address] [id number] Oct, [place] [id number] [place] [address] [id number] Oct, Diabetic polyneuropathy associated with type 2 diabetes mellitus E11.42 ; Insomnia due to other mental disorder F51.05 ; Psoriasis L40.9 and Hip bursitis , left M70.72 [facility] [id number] [place] [address] [id number] Oct, [address] [id number] Oct, Dermatitis L30.9 [place] [id number] [place] [address] [id number] Sep, Pain of left hip joint M25.552 and Insomnia due to other mental disorder F51.05 [facility] [id number] [place] [address] [id number] Sep, Bronchitis J40 [place] [id number] [place] [address] [id number] Sep, Acute nasopharyngitis J00 ; History of wheezing Z87.898 ; Tobacco abuse Z72.0 and Tobacco abuse counseling Z71.6 [facility] [id number] [place] [address] [phone] Sep, [address] [place] [id number] Sep, Type 2 diabetes mellitus without complication, without long-term current use of insulin E11.9 [facility] [place] [address] [id number] [place] [id number] Aug, Chronic constipation K59.09 [facility] [place] [id number] [place] [address] [id number] Aug, Type 2 diabetes mellitus without complication, without long-term current use of insulin E11.9 [facility] [place] [id number] [place] [address] [id number] Aug, [facility] [place] [id number] [place] [address] [id number] Jul, Breast tenderness in female N64.4 ; Screening breast examination Z12.39 ; History of lump of left breast Z87.898 and Chronic constipation K59.09 [facility] [place] [id number] [place] [address] [id number] Jul, Type 2 diabetes mellitus without complication, without long-term current use of insulin E11.9 ; Hip bursitis, left M70.72 ; Schizophrenia, unspecified type F20.9 and Diabetic polyneuropathy associated with type 2 diabetes mellitus E11.42 [facility] [place] [address] [id number] [place] [id number] Jul, [facility] [place] [id number] [place] [address] [id number] Jul, Hip bursitis, left M70.72 [facility] [place] [id number] [place] [address] [id number] Jun, Diabetic polyneuropathy associated with type 2 diabetes mellitus E11.42 [facility] [place] [id number] [place] [address] [id number] Jun, [facility] [place] [id number] [place] [address] [id number] May, Type 2 diabetes mellitus without complication, without long-term current use of insulin E11.9 [facility] [place] [id number] [place] [address] [id number] May, [facility] [place] [id number] [place] [address] [id number] May, Dermatitis L30.9 [address] [place] [address] [id number] Apr, [place] [id number] [place] [address] [id number] Apr, Type 2 diabetes mellitus without complication, without long-term current use of insulin E11.9 and Schizophrenia, unspecified type F20.9 [place] [id number] [place] [address] [id number] Apr, [address] [place] [address] [id number] Apr, [place] [id number] [place] [address] [id number] Mar, Depression, unspecified depression type F32.9 ; Schizophrenia, unspecified type F20.9 and Psoriasis L40.9 [address] [place] [address] [id number] Feb, Prediabetes R73.09 ; Depression, unspecified depression type F32.9 ; Schizophrenia, unspecified type F20.9 and Hypertriglyceridemia E78.1 [address] [place] [address] [id number] January, Hyperlipidemia, unspecified hyperlipidemia type E78.5 [address] [place] [address] [id number] January, Schizophrenia, unspecified type F20.9 ; Depression, unspecified depression type F32.9 ; PTSD (post-traumatic stress disorder) F43.10 and Prediabetes R73.09 IMMUNIZATIONS No Known Immunizations SOCIAL HISTORY Never Assessed REASON FOR VISIT med refill PLAN OF CARE VITAL SIGNS MEDICATIONS Medication Instructions Dosage Frequency Start Date End Date Duration Status Seroquel 300 MG Orally Once a day 2 tablet at bedtime 24h 0 days Active RESULTS No Results PROCEDURES No Known [...]
--- OUTSIDE RECORDS SUMMARY | 2018-04-22 00:23 | XMS REPORT ---
Author Author AGUILAR SMITH [facility] Address [address] [place] [address] Care Team Providers Care Beater Out Leveling Machine Name Role Phone AGUILAR SMITH Unavailable PROBLEMS Type Condition ICD9-CM Code OCE01-GX Code Onset Dates Condition Status SNOMED Code Problem Hypertriglyceridemia E78.1 Active 001194423 Problem Type 2 diabetes mellitus without complication, without long-term current use of insulin E11.9 Active 252762733 Problem Psoriasis L40.9 Active 3975232 Problem Depression, unspecified depression type F32.9 Active 04974707 Problem Schizophrenia, unspecified type F20.9 Active 84754420 Problem Prediabetes R73.09 Active 319618277 Problem PTSD (post-traumatic stress disorder) F43.10 Active 79040136 Problem Frequent headaches R51 Active 907053964 Problem Insomnia due to other mental disorder F51.05 Active 67542347 Problem Hip bursitis, left M70.72 Active 01839513 Problem Diabetic polyneuropathy associated with type 2 diabetes mellitus E11.42 Active 63901212 Problem History of lump of left breast Z87.898 Active 073214654 Problem Chronic constipation K59.09 Active 434181095 ALLERGIES No Information ENCOUNTERS Encounter Location Date Diagnosis [address], [place] [id number] Dec, Frequent headaches R51 and Insomnia due to other mental disorder F51.05 [address] [id number] Nov, Type 2 diabetes mellitus without complication, without long-term current use of insulin E11.9 ; Frequent headaches R51 and Psoriasis L40.9 [address] [id number] Sep, [address] [id number] Sep, [place] [id number] [place] [address] [id number] Sep, Pain in left shoulder M25.512 [facility] [place] [address] [place] [id number] [place] [address] [id number] Aug, Schizophrenia, unspecified type F20.9 ; Pain in left shoulder M25.512 and Pain in right shoulder M25.511 [facility] [place] [id number] [place] [address] [id number] Aug, Schizophrenia, unspecified type F20.9 [facility] [place] [id number] [place] [address] [id number] Jul, Diabetic polyneuropathy associated with type 2 diabetes mellitus E11.42 ; Schizophrenia, unspecified type F20.9 and Psoriasis L40.9 [place] [id number] [place] [address] [id number] Jul, Vertigo R42 [place] [id number] [place] [address] [id number] May, Vertigo R42 [place] [id number] [place] [address] [id number] May, Diabetic polyneuropathy associated with type 2 diabetes mellitus E11.42 [place] [id number] [place] [address] [id number] Apr, Diabetic polyneuropathy associated with type 2 diabetes mellitus E11.42 ; Insomnia due to other mental disorder F51.05 and Vertigo R42 [place] [id number] [place] [address] [id number] Feb, Type 2 diabetes mellitus without complication, without long-term current use of insulin E11.9 and Other hemorrhoids K64.8 [address] [place] [address] [id number] January, Well woman exam Z01.419 ; Yeast infection of the skin B37.2 and Grade III hemorrhoids K64.2 [place] [id number] [place] [address] [id number] Dec, Diabetic polyneuropathy associated with type 2 diabetes mellitus E11.42 [place] [id number] [place] [address] [id number] Dec, Hypertriglyceridemia E78.1 ; Type 2 diabetes mellitus without complication , without long-term current use of insulin E11.9 ; Insomnia due to other mental disorder F51.05 ; Diabetic polyneuropathy associated with type 2 diabetes mellitus E11.42 ; Bronchitis J40 ; Psoriasis L40.9 ; Dermatitis L30.9 and Chronic constipation K59.09 [facility] [id number] [place] [address] [id number] Nov, Hypertriglyceridemia E78.1 and Type 2 diabetes mellitus without complication, without long-term current use of insulin E11.9 [place] [id number] [place] [address] [id number] Nov, Hyperlipidemia, unspecified hyperlipidemia type E78.[address] [id number] Oct, [place] [id number] [place] [address] [id number] Oct, Diabetic polyneuropathy associated with type 2 diabetes mellitus E11.42 ; Insomnia due to other mental disorder F51.05 ; Psoriasis L40.9 and Hip bursitis , left M70.72 [facility] [id number] [place] [address] [id number] Oct, [address] [id number] Oct, Dermatitis L30.9 [place] [address] [place] [address] [id number] Sep, Pain of left hip joint M25.552 and Insomnia due to other mental disorder F51.05 [facility] [id number] [place] [address] [id number] Sep, Bronchitis J40 [place] [id number] [place] [address] [id number] Sep, Acute nasopharyngitis J00 ; History of wheezing Z87.898 ; Tobacco abuse Z72.0 and Tobacco abuse counseling Z71.6 [facility] [id number] [place] [address] [phone] Sep, [address] [place] [id number] Sep, Type 2 diabetes mellitus without complication, without long-term current use of insulin E11.9 [facility] [place] [address] [id number] [place] [id number] Aug, Chronic constipation K59.09 [facility] [place] [id number] [place] [address] [id number] Aug, Type 2 diabetes mellitus without complication, without long-term current use of insulin E11.9 [facility] [place] [id number] [place] [address] [id number] Aug, [facility] [place] [id number] [place] [address] [id number] Jul, Breast tenderness in female N64.4 ; Screening breast examination Z12.39 ; History of lump of left breast Z87.898 and Chronic constipation K59.09 [facility] [place] [id number] [place] [address] [id number] Jul, Type 2 diabetes mellitus without complication, without long-term current use of insulin E11.9 ; Hip bursitis, left M70.72 ; Schizophrenia, unspecified type F20.9 and Diabetic polyneuropathy associated with type 2 diabetes mellitus E11.42 [facility] [place] [address] [id number] [place] [id number] Jul, [facility] [place] [id number] [place] [address] [id number] Jul, Hip bursitis, left M70.72 [facility] [place] [id number] [place] [address] [id number] Jun, Diabetic polyneuropathy associated with type 2 diabetes mellitus E11.42 [facility] [place] [id number] [place] [address] [id number] Jun, [facility] [place] [id number] [place] [address] [id number] May, Type 2 diabetes mellitus without complication, without long-term current use of insulin E11.9 [facility] [place] [id number] [place] [address] [id number] May, [facility] [place] [id number] [place] [address] [id number] May, Dermatitis L30.9 [address] [place] [address] [id number] Apr, [place] [id number] [place] [address] [id number] Apr, Type 2 diabetes mellitus without complication, without long-term current use of insulin E11.9 and Schizophrenia, unspecified type F20.9 [address] [place] [address] [id number] Apr, [address] [place] [address] [id number] Apr, [address] [place] [address] [id number] Mar, Depression, unspecified depression type F32.9 ; Schizophrenia, unspecified type F20.9 and Psoriasis L40.9 [address] [place] [address] [id number] Feb, Prediabetes R73.09 ; Depression, unspecified depression type F32.9 ; Schizophrenia, unspecified type F20.9 and Hypertriglyceridemia E78.1 [address] [place] [address] [id number] January, Hyperlipidemia, unspecified hyperlipidemia type E78.5 [address] [place] [address] [id number] January, Schizophrenia, unspecified type F20.9 ; Depression, unspecified depression type F32.9 ; PTSD (post-traumatic stress disorder) F43.10 and Prediabetes R73.09 IMMUNIZATIONS No Known Immunizations SOCIAL HISTORY Never Assessed REASON FOR VISIT med refill PLAN OF CARE VITAL SIGNS MEDICATIONS Medication Instructions Dosage Frequency Start Date End Date Duration Status Meloxicam 15 mg Orally Once a day 1 tablet 24h 0 days Active RESULTS No Results [...]
--- OUTSIDE RECORDS SUMMARY | 2018-04-22 00:23 | XMS REPORT ---
Author Author AGUILAR SMITH Organization [employer] Address Unknown Phone Unavailable Care Team Providers Care Correspondence Analyst Name Role Phone AGUILAR SMITH CP Unavailable Allergies No Known Allergies Problems Problem Type Condition Code Onset Dates Condition Status Problem Psoriasis L40.9 Active Problem Hypertriglyceridemia E78.1 Active Problem Type 2 diabetes mellitus without complication, without long-term current use of insulin E11.9 Active Problem PTSD (post-traumatic stress disorder) F43.10 Active Problem Prediabetes R73.09 Active Problem Schizophrenia, unspecified type F20.9 Active Problem Depression, unspecified depression type F32.9 Active Medications Medication Code System Code Instructions Start Date End Date Status Dosage Glucometer NDC 0 ... True Test E11.9 February 11, 2016 as directed Test strips NDC 0 ... True Test Once a day, DX: E11.9 May 19, 2016 as directed Lancets [facility] [id number] - Once a day May 19, 2016 as directed Results No Known Results Summary Purpose [employer] Submission
--- OUTSIDE RECORDS SUMMARY | 2018-04-22 00:23 | XMS REPORT ---
Author Author AGUILAR SMITH [facility] [employer] Address Unknown Phone Unavailable Care Team Providers Care Hotel Service Manager Name Role Phone AGUILAR SMITH CP Unavailable Allergies, Adverse Reactions, Alerts Substance Reaction Event Type Risperdal hives Drug Allergy Penicillin V Potassium rash Drug Allergy Iodine anaphylaxis Drug Allergy Problems Problem Type Condition Code Onset Dates Condition Status Assessment Type 2 diabetes mellitus without complication, without long-term current use of insulin E11.9 Active Assessment Schizophrenia, unspecified type F20.9 Active Problem Psoriasis L40.9 Active Problem Hypertriglyceridemia E78.1 Active Problem Type 2 diabetes mellitus without complication, without long-term current use of insulin E11.9 Active Problem PTSD (post-traumatic stress disorder) F43.10 Active Problem Prediabetes R73.09 Active Problem Schizophrenia, unspecified type F20.9 Active Problem Depression, unspecified depression type F32.9 Active Medications Medication Code System Code Instructions Start Date End Date Status Dosage Triamcinolone Acetonide [facility] [address]-60 0.1 % Externally Twice a day as needed for skin flairs April 02, 2016 1 application to affected area Haloperidol [facility] [address]-46 15 mg Orally 3 times a day 1 tablet Seroquel [facility] [address]-75 300 MG Orally Once a day 2 tablet at bedtime MetFORMIN HCl ER [facility] [address]-27 750 MG Orally Once a day March 03, 2016 1 tablet Glucometer [facility] 0 ... February 11, 2016 as directed Paxil [facility] [address]-59 40 mg Orally Once a day 1 tablet in the morning Tricor [facility] [address]-81 48 MG Orally Once a day February 13, 2016 1 tablet Procedures Procedure Coding System Code Date GLYCATED HEMOGLOBIN TEST CPT-4 56531 May 04, 2016 Office Visit, Est Pt., Level 3 CPT-4 06239 May 04, 2016 Vital Signs Date/Time: May 04, 2016 Cardiac Monitoring Heart Rate 92 bpm Weight 172.2 lbs Height 66 in BMI 27.79 Index Blood Pressure Diastolic 80 mmHg Blood Pressure Systolic 124 mmHg Results No Known Results Summary Purpose [employer] Submission
--- OUTSIDE RECORDS SUMMARY | 2018-04-22 00:23 | XMS REPORT ---
Author Author AGUILAR SMITH Organization [employer] Address Unknown Phone Unavailable Care Team Providers Care Assistant Press Operator Name Role Phone AGUILAR SMITH CP Unavailable Allergies No Known Allergies Problems Problem Type Condition Code Onset Dates Condition Status Problem PTSD (post-traumatic stress disorder) F43.10 Active Problem Prediabetes R73.09 Active Problem Diabetic polyneuropathy associated with type 2 diabetes mellitus E11.42 Active Problem Type 2 diabetes mellitus without complication, without long-term current use of insulin E11.9 Active Problem Hip bursitis, left M70.72 Active Problem Schizophrenia, unspecified type F20.9 Active Problem Depression, unspecified depression type F32.9 Active Problem Psoriasis L40.9 Active Problem Hypertriglyceridemia E78.1 Active Medications No Known Medications Results No Known Results Summary Purpose [employer] Submission
--- OUTSIDE RECORDS SUMMARY | 2018-04-22 00:23 | XMS REPORT ---
Author Author AGUILAR SMITH [facility] Address [address] [place] [address] Care Team Providers Care Horticultural Specialty Grower Name Role Phone AGUILAR SMITH Unavailable PROBLEMS Type Condition ICD9-CM Code [id number] Code Onset Dates Condition Status SNOMED Code Problem Hypertriglyceridemia E78.1 Active 834652849 Problem Type 2 diabetes mellitus without complication, without long-term current use of insulin E11.9 Active 650223223 Problem Psoriasis L40.9 Active 0488783 Problem Depression, unspecified depression type F32.9 Active 87253291 Problem Schizophrenia, unspecified type F20.9 Active 71353044 Problem Prediabetes R73.09 Active 378146667 Problem PTSD (post-traumatic stress disorder) F43.10 Active 75717041 Problem Frequent headaches R51 Active 578369109 Problem Insomnia due to other mental disorder F51.05 Active 76277034 Problem Hip bursitis, left M70.72 Active 58232812 Problem Diabetic polyneuropathy associated with type 2 diabetes mellitus E11.42 Active 77762743 Problem History of lump of left breast Z87.898 Active 577195921 Problem Chronic constipation K59.09 Active 213562351 ALLERGIES No Information ENCOUNTERS Encounter Location Date Diagnosis [address] [place] [address] [id number] Feb, Frequent headaches R51 [place] [id number] [place] [address] [id number] Dec, Frequent headaches R51 and Insomnia due to other mental disorder F51.05 [place] [address] [place] [address] [id number] Nov, Type 2 diabetes mellitus without complication, without long-term current use of insulin E11.9 ; Frequent headaches R51 and Psoriasis L40.[address] [place] [address] [id number] Sep, [place] [id number] [place] [address] [id number] Sep, [facility] [place] [id number] [place] [address] [id number] Sep, Pain in left shoulder M25.512 [facility] [place] [id number] [place] [address] [id number] Aug, Schizophrenia, unspecified type F20.9 ; Pain in left shoulder M25.512 and Pain in right shoulder M25.511 [facility] [place] [id number] [place] [address] [id number] Aug, Schizophrenia, unspecified type F20.9 [facility] [place] [id number] [place] [address] [id number] Jul, Diabetic polyneuropathy associated with type 2 diabetes mellitus E11.42 ; Schizophrenia, unspecified type F20.9 and Psoriasis L40.9 [facility] [id number] [place] [address] [id number] Jul, Vertigo R42 [facility] [id number] [place] [address] [id number] May, Vertigo R42 [facility] [place] [id number] [place] [address] [id number] May, Diabetic polyneuropathy associated with type 2 diabetes mellitus E11.42 [facility] [id number] [place] [address] [id number] Apr, Diabetic polyneuropathy associated with type 2 diabetes mellitus E11.42 ; Insomnia due to other mental disorder F51.05 and Vertigo R42 [facility] [id number] [place] [address] [id number] Feb, Type 2 diabetes mellitus without complication, without long-term current use of insulin E11.9 and Other hemorrhoids K64.8 [facility] [place] [id number] [place] [address] [id number] January, Well woman exam Z01.419 ; Yeast infection of the skin B37.2 and Grade III hemorrhoids K64.2 [facility] [place] [id number] [place] [address] [id number] Dec, Diabetic polyneuropathy associated with type 2 diabetes mellitus E11.42 [address] [place] [address] [id number] Dec, Hypertriglyceridemia E78.1 ; Type 2 diabetes mellitus without complication , without long-term current use of insulin E11.9 ; Insomnia due to other mental disorder F51.05 ; Diabetic polyneuropathy associated with type 2 diabetes mellitus E11.42 ; Bronchitis J40 ; Psoriasis L40.9 ; Dermatitis L30.9 and Chronic constipation K59.09 [address] [place] [address] [id number] Nov, Hypertriglyceridemia E78.1 and Type 2 diabetes mellitus without complication, without long-term current use of insulin E11.9 [place] [id number] [place] [address] [id number] Nov, Hyperlipidemia, unspecified hyperlipidemia type E78.5 [place] [id number] [place] [address] [id number] Oct, [place] [address] [place] [address] [id number] Oct, Diabetic polyneuropathy associated with type 2 diabetes mellitus E11.42 ; Insomnia due to other mental disorder F51.05 ; Psoriasis L40.9 and Hip bursitis , left M70.72 [place] [id number] [id number] Oct, [address] [place] [address] [id number] Oct, Dermatitis L30.9 [address] [place] [address] [id number] Sep, Pain of left hip joint M25.552 and Insomnia due to other mental disorder F51.05 [address] [place] [address] [id number] Sep, Bronchitis J40 [address] [place] [address] [id number] Sep, Acute nasopharyngitis J00 ; History of wheezing Z87.898 ; Tobacco abuse Z72.0 and Tobacco abuse counseling Z71.6 [facility] [address] [address] Sep, [facility] [place] [id number] [id number] Sep, Type 2 diabetes mellitus without complication, without long-term current use of insulin E11.9 [facility] [place] [id number] [id number] Aug, Chronic constipation K59.09 [facility] [place] [id number] [place] [address] [id number] Aug, Type 2 diabetes mellitus without complication, without long-term current use of insulin E11.9 [facility] [place] [id number] [place] [address] [id number] Aug, [facility] [place] [id number] [place] [address] [id number] Jul, Breast tenderness in female N64.4 ; Screening breast examination Z12.39 ; History of lump of left breast Z87.898 and Chronic constipation K59.09 [facility] [place] [id number] [place] [address] [id number] Jul, Type 2 diabetes mellitus without complication, without long-term current use of insulin E11.9 ; Hip bursitis, left M70.72 ; Schizophrenia, unspecified type F20.9 and Diabetic polyneuropathy associated with type 2 diabetes mellitus E11.42 [facility] [place] [id number] [place] [id number] Jul, [facility] [place] [id number] [place] [address] [id number] Jul, Hip bursitis, left M70.72 [facility] [place] [id number] [place] [id number] Jun, Diabetic polyneuropathy associated with type 2 diabetes mellitus E11.42 [facility] [place] [id number] [place] [address] [id number] Jun, [facility] [place] [id number] [place] [address] [id number] May, Type 2 diabetes mellitus without complication, without long-term current use of insulin E11.9 [facility] [place] [id number] [id number] May, [facility] [id number] [place] [address] [id number] May, Dermatitis L30.9 [place] [id number] [place] [address] [id number] Apr, [facility] [id number] [place] [address] [id number] Apr, Type 2 diabetes mellitus without complication, without long-term current use of insulin E11.9 and Schizophrenia, unspecified type F20.9 [facility] [id number] [place] [address] [id number] Apr, [place] [id number] [place] [address] [id number] Apr, [facility] [id number] [place] [address] [id number] Mar, Depression, unspecified depression type F32.9 ; Schizophrenia, unspecified type F20.9 and Psoriasis L40.9 [address] [place] [address] [id number] Feb, Prediabetes R73.09 ; Depression, unspecified depression type F32.9 ; Schizophrenia, unspecified type F20.9 and Hypertriglyceridemia E78.1 [address] [place] [address] [id number] January, Hyperlipidemia, unspecified hyperlipidemia type E78.5 [address] [place] [address] [id number] January, Schizophrenia, unspecified type F20.9 ; Depression, unspecified depression type F32.9 ; PTSD (post-traumatic stress disorder) F43.10 and Prediabetes R73.09 IMMUNIZATIONS No Known Immunizations SOCIAL HISTORY Never Assessed REASON FOR VISIT med refill PLAN OF CARE VITAL SIGNS MEDICATIONS Medication Instructions Dosage Frequency Start Date End Date Duration Status Tricor 145 MG Orally Once a day 1 tablet 24h 0 days Active RESULTS No Results PROCEDURES No Known procedures INSTRUCTIONS MEDICATIONS ADMINISTERED No Known Medications MEDICAL (GENERAL) HISTORY Type Description Date Medical History schizophrenia Medical History PTSD Medical History depression Medical History mood disorder Medical History fibromyalgia Surgical History section x 2 Surgical History tubal ligation 1985 Surgical History cholecystectomy 2004 Surgical History tonsillectomy 1977 Surgical History hysterectomy 2009 Surgical History colonoscopy 2013 Surgical History hemorrhoidectomy 01/2017 Hospitalization History surgeries
--- OUTSIDE RECORDS SUMMARY | 2018-04-22 00:24 | XMS REPORT ---
Author Author ELIESER CASTRO [facility] Address [address] [place] [address] Care Team Providers Care Talent Manager Name Role Phone ELIESER CASTRO Unavailable PROBLEMS Type Condition ICD9-CM Code [id number] Code Onset Dates Condition Status SNOMED Code Problem PTSD (post-traumatic stress disorder) F43.10 Active 21096226 Problem Psoriasis L40.9 Active 8774895 Problem Hypertriglyceridemia E78.1 Active 641687888 Problem Depression, unspecified depression type F32.9 Active 25176869 Problem Schizophrenia, unspecified type F20.9 Active 56408429 Problem Prediabetes R73.09 Active 167391291 Problem Insomnia due to other mental disorder F51.05 Active 15594188 Problem History of lump of left breast Z87.898 Active 352260641 Problem Diabetic polyneuropathy associated with type 2 diabetes mellitus E11.42 Active 37517214 Problem Type 2 diabetes mellitus without complication, without long-term current use of insulin E11.9 Active 820053032 Problem Chronic constipation K59.09 Active 081295924 Problem Hip bursitis, left M70.72 Active 13354142 ALLERGIES Substance Reaction Event Type Date Status Risperdal hives Drug Allergy January, Active Penicillin V Potassium rash Drug Allergy January, Active Iodine anaphylaxis Drug Allergy January, Active SOCIAL HISTORY Never Assessed PLAN OF CARE Activity Details Follow Up prn Reason: VITAL SIGNS Height 66 in 2017-02-12 Weight 172.4 lbs 2017-02-12 Temperature 98.7 degrees Fahrenheit 2017-02-12 Heart Rate 100 bpm 2017-02-12 Respiratory Rate 20 2017-02-12 BMI 27.82 kg/m2 2017-02-12 Blood pressure systolic 138 mmHg 2017-02-12 Blood pressure diastolic 78 mmHg 2017-02-12 MEDICATIONS Medication Instructions Dosage Frequency Start Date End Date Duration Status Glucometer ... True Test E11.9 as directed January, Active MetFORMIN HCl ER 750 MG Orally Once a day 2 tablet 24h 14 Feb, 2016 Active Trazodone HCl 50 mg Orally Once a day .5-1 tablet at bedtime as needed 24h 30 Active Nystatin-Triamcinolone 974729-4.1 UNIT/GM Externally Twice a day 1 application to affected area 12h January, Active Tricor 145 MG Orally Once a day 1 tablet 24h Active Haloperidol 5 MG Orally 3 times a day 3 tablet 8h Active TRUEplus Lancets 28G - DX: E11:9 Once a day .... 24h Active Meloxicam 15 MG Orally Once a day 1 tablet 24h 0 Active True Metrix Blood Glucose Test - True Metrix Once a day, DX: E11.9 .... Active Seroquel 300 MG Orally Once a day 2 tablet at bedtime 24h Active ProAir HFA 108 (90 Base) MCG/ACT Inhalation every 4 hrs 2 puffs as needed 4h Dec, Active Victoza 18 MG/3ML Subcutaneous Once a day .6 mg 24h 30 Active Fish Oil 1000 MG Orally 3 times a day 1 capsule 8h Active BD Ultra-Fine Pen [place] 29G X 12.7MM subcutaneously Once a day as directed 24h 20 Oct, 2016 30 days Active Paxil 40 mg Orally Once a day 1 tablet in the morning 24h Active Gabapentin 300 MG Orally Three times a day 1 capsule 8h Active RESULTS Name Result Date Reference Range CULTURE, GENITAL 2017-02-12 Genital Culture, Routine Final report Result 1 PAP TEST W/ HPV REGARDLESS 2017-02-12 DIAGNOSIS: Specimen adequacy: Clinician provided ICD10: Performed by: . . Note: HPV, high-risk Negative Negative PDF Report 2017-02-12 PDF Report1 LCLS BACTERIAL VAGINOSIS (IN HOUSE) 2017-02-12 RESULTS negative Control + Lot # [id number] Exp date 08/2017 PROCEDURES Procedure Date Ordered Result Body [facility] February 12, 2017 [place]ROY VAG, DNA, DIR PROBE February 12, 2017 SPECIMEN HANDLING February 12, 2017 IMMUNIZATIONS No Known Immunizations MEDICAL (GENERAL) HISTORY Type Description Date Medical History schizophrenia Medical History PTSD Medical History depression Medical History mood disorder Medical History fibromyalgia Surgical History section x 2 1986,1996 Surgical History tubal ligation 1986 Surgical History cholecystectomy 2005 Surgical History tonsillectomy 1978 Surgical History hysterectomy 2009 Surgical History colonoscopy 2013 Hospitalization History surgeries
--- OUTSIDE RECORDS SUMMARY | 2018-04-22 00:24 | XMS REPORT ---
Author Author AGUILAR SMITH [facility] Address [address] [place] [address] Care Team Providers Care Math And Sciences Department Chair Name Role Phone AGUILAR SMITH Unavailable PROBLEMS Type Condition ICD9-CM Code [id number] Code Onset Dates Condition Status SNOMED Code Problem Hypertriglyceridemia E78.1 Active 635986244 Problem Type 2 diabetes mellitus without complication, without long-term current use of insulin E11.9 Active 464593249 Problem Psoriasis L40.9 Active 2154604 Problem Depression, unspecified depression type F32.9 Active 86913696 Problem Schizophrenia, unspecified type F20.9 Active 24688712 Problem Prediabetes R73.09 Active 427327700 Problem PTSD (post-traumatic stress disorder) F43.10 Active 07866070 Problem Frequent headaches R51 Active 049452037 Problem Insomnia due to other mental disorder F51.05 Active 37973230 Problem Hip bursitis, left M70.72 Active 33829148 Problem Diabetic polyneuropathy associated with type 2 diabetes mellitus E11.42 Active 99234046 Problem History of lump of left breast Z87.898 Active 523565408 Problem Chronic constipation K59.09 Active 415176390 ALLERGIES No Information ENCOUNTERS Encounter Location Date Diagnosis [address] [id number] Dec, Frequent headaches R51 and Insomnia due to other mental disorder F51.05 [address] [id number] Nov, Type 2 diabetes mellitus without complication, without long-term current use of insulin E11.9 ; Frequent headaches R51 and Psoriasis L40.9 [address] [id number] Sep, [address] [id number] Sep, [place] [id number] [place] [address] [id number] Sep, Pain in left shoulder M25.512 [facility] [place] [id number] [place] [address] [id number] Aug, Schizophrenia, unspecified type F20.9 ; Pain in left shoulder M25.512 and Pain in right shoulder M25.511 [facility] [place] [id number] [place] [address] [id number] Aug, Schizophrenia, unspecified type F20.9 [facility] [place] [id number] [place] [address] [id number] Jul, Diabetic polyneuropathy associated with type 2 diabetes mellitus E11.42 ; Schizophrenia, unspecified type F20.9 and Psoriasis L40.9 [place] [id number] [place] [address] [id number] Jul, Vertigo R42 [place] [id number] [place] [address] [id number] May, Vertigo R42 [place] [id number] [place] [address] [id number] May, Diabetic polyneuropathy associated with type 2 diabetes mellitus E11.42 [place] [id number] [place] [address] [id number] Apr, Diabetic polyneuropathy associated with type 2 diabetes mellitus E11.42 ; Insomnia due to other mental disorder F51.05 and Vertigo R42 [place] [id number] [place] [address] [id number] Feb, Type 2 diabetes mellitus without complication, without long-term current use of insulin E11.9 and Other hemorrhoids K64.[address] [place] [address] [id number] January, Well woman exam Z01.419 ; Yeast infection of the skin B37.2 and Grade III hemorrhoids K64.2 [place] [id number] [place] [address] [id number] Dec, Diabetic polyneuropathy associated with type 2 diabetes mellitus E11.42 [place] [id number] [place] [address] [id number] Dec, Hypertriglyceridemia E78.1 ; Type 2 diabetes mellitus without complication , without long-term current use of insulin E11.9 ; Insomnia due to other mental disorder F51.05 ; Diabetic polyneuropathy associated with type 2 diabetes mellitus E11.42 ; Bronchitis J40 ; Psoriasis L40.9 ; Dermatitis L30.9 and Chronic constipation K59.09 [facility] [id number] [place] [address] [id number] Nov, Hypertriglyceridemia E78.1 and Type 2 diabetes mellitus without complication, without long-term current use of insulin E11.9 [place] [id number] [place] [address] [id number] Nov, Hyperlipidemia, unspecified hyperlipidemia type E78.[address] [id number] Oct, [place] [id number] [place] [address] [id number] Oct, Diabetic polyneuropathy associated with type 2 diabetes mellitus E11.42 ; Insomnia due to other mental disorder F51.05 ; Psoriasis L40.9 and Hip bursitis , left M70.72 [facility] [id number] [place] [address] [id number] Oct, [address] [id number] Oct, Dermatitis L30.9 [place] [id number] [place] [address] [id number] Sep, Pain of left hip joint M25.552 and Insomnia due to other mental disorder F51.05 [facility] [id number] [place] [address] [id number] Sep, Bronchitis J40 [place] [id number] [place] [address] [id number] Sep, Acute nasopharyngitis J00 ; History of wheezing Z87.898 ; Tobacco abuse Z72.0 and Tobacco abuse counseling Z71.6 [facility] [id number] [place] [id number] Sep, [address] [place] [id number] Sep, Type 2 diabetes mellitus without complication, without long-term current use of insulin E11.9 [facility] [place] [address] [id number] [place] [id number] Aug, Chronic constipation K59.09 [facility] [place] [id number] [place] [address] [id number] Aug, Type 2 diabetes mellitus without complication, without long-term current use of insulin E11.9 [facility] [place] [id number] [place] [address] [id number] Aug, [facility] [place] [id number] [place] [address] [id number] Jul, Breast tenderness in female N64.4 ; Screening breast examination Z12.39 ; History of lump of left breast Z87.898 and Chronic constipation K59.09 [facility] [place] [id number] [place] [address] [id number] Jul, Type 2 diabetes mellitus without complication, without long-term current use of insulin E11.9 ; Hip bursitis, left M70.72 ; Schizophrenia, unspecified type F20.9 and Diabetic polyneuropathy associated with type 2 diabetes mellitus E11.42 [facility] [place] [address] [id number] [place] [id number] Jul, [facility] [place] [id number] [place] [address] [id number] Jul, Hip bursitis, left M70.72 [facility] [place] [id number] [place] [address] [id number] Jun, Diabetic polyneuropathy associated with type 2 diabetes mellitus E11.42 [facility] [place] [id number] [place] [address] [id number] Jun, [facility] [place] [id number] [place] [address] [id number] May, Type 2 diabetes mellitus without complication, without long-term current use of insulin E11.9 [facility] [place] [id number] [place] [address] [id number] May, [facility] [place] [id number] [place] [address] [id number] May, Dermatitis L30.9 [address] [place] [address] [id number] Apr, [place] [id number] [place] [address] [id number] Apr, Type 2 diabetes mellitus without complication, without long-term current use of insulin E11.9 and Schizophrenia, unspecified type F20.9 [place] [id number] [place] [address] [id number] Apr, [place] [id number] [place] [address] [id number] Apr, [place] [id number] [place] [address] [id number] Mar, Depression, unspecified depression type F32.9 ; Schizophrenia, unspecified type F20.9 and Psoriasis L40.9 [place] [id number] [place] [address] [id number] Feb, Prediabetes R73.09 ; Depression, unspecified depression type F32.9 ; Schizophrenia, unspecified type F20.9 and Hypertriglyceridemia E78.[address] [place] [address] [id number] January, Hyperlipidemia, unspecified hyperlipidemia type E78.5 [place] [id number] [place] [address] [id number] January, Schizophrenia, unspecified type F20.9 ; Depression, unspecified depression type F32.9 ; PTSD (post-traumatic stress disorder) F43.10 and Prediabetes R73.09 IMMUNIZATIONS No Known Immunizations SOCIAL HISTORY Never Assessed REASON FOR VISIT RX-Pen needle refill PLAN OF CARE VITAL SIGNS MEDICATIONS Medication Instructions Dosage Frequency Start Date End Date Duration Status BD Pen Needle Ultrafine 29G X 12.7MM subcutaneously Once a day as directed 24h Oct, 30 days Active RESULTS No Results PROCEDURES No [...]
--- OUTSIDE RECORDS SUMMARY | 2018-04-22 00:24 | XMS REPORT ---
Author Author AGUILAR SMITH [facility] Address [address] [place] [address] Care Team Providers Care Senior Electrical Designer Name Role Phone AGUILRA SMITH Unavailable PROBLEMS Type Condition ICD9-CM Code BED94-VC Code Onset Dates Condition Status SNOMED Code Problem Hypertriglyceridemia E78.1 Active 246228157 Problem Type 2 diabetes mellitus without complication, without long-term current use of insulin E11.9 Active 460906513 Problem Psoriasis L40.9 Active 5160867 Problem Depression, unspecified depression type F32.9 Active 92987782 Problem Schizophrenia, unspecified type F20.9 Active 94859024 Problem Prediabetes R73.09 Active 628194947 Problem PTSD (post-traumatic stress disorder) F43.10 Active 87367560 Problem Frequent headaches R51 Active 518490545 Problem Insomnia due to other mental disorder F51.05 Active 28521551 Problem Hip bursitis, left M70.72 Active 26566179 Problem Diabetic polyneuropathy associated with type 2 diabetes mellitus E11.42 Active 23046329 Problem History of lump of left breast Z87.898 Active 591885257 Problem Chronic constipation K59.09 Active 043096261 ALLERGIES No Information ENCOUNTERS Encounter Location Date Diagnosis [address] [id number] Dec, Frequent headaches R51 and Insomnia due to other mental disorder F51.05 [address] [id number] Nov, Type 2 diabetes mellitus without complication, without long-term current use of insulin E11.9 ; Frequent headaches R51 and Psoriasis L40.9 [address] [id number] Sep, [address] [id number] Sep, [place] [id number] [place] [address] [id number] Sep, Pain in left shoulder M25.512 [facility] [place] [id number] [place] [address] [id number] Aug, Schizophrenia, unspecified type F20.9 ; Pain in left shoulder M25.512 and Pain in right shoulder M25.511 [facility] [place] [id number] [place] [address] [id number] Aug, Schizophrenia, unspecified type F20.9 [facility] [place] [id number] [place] [address] [id number] Jul, Diabetic polyneuropathy associated with type 2 diabetes mellitus E11.42 ; Schizophrenia, unspecified type F20.9 and Psoriasis L40.9 [place] [id number] [place] [address] [id number] Jul, Vertigo R42 [place] [id number] [place] [address] [id number] May, Vertigo R42 [place] [id number] [place] [address] [id number] May, Diabetic polyneuropathy associated with type 2 diabetes mellitus E11.42 [place] [id number] [place] [address] [id number] Apr, Diabetic polyneuropathy associated with type 2 diabetes mellitus E11.42 ; Insomnia due to other mental disorder F51.05 and Vertigo R42 [place] [id number] [place] [address] [id number] Feb, Type 2 diabetes mellitus without complication, without long-term current use of insulin E11.9 and Other hemorrhoids K64.8 [address] [place] [address] [id number] January, Well woman exam Z01.419 ; Yeast infection of the skin B37.2 and Grade III hemorrhoids K64.2 [place] [id number] [place] [address] [id number] Dec, Diabetic polyneuropathy associated with type 2 diabetes mellitus E11.42 [place] [id number] [place] [address] [id number] Dec, Hypertriglyceridemia E78.1 ; Type 2 diabetes mellitus without complication , without long-term current use of insulin E11.9 ; Insomnia due to other mental disorder F51.05 ; Diabetic polyneuropathy associated with type 2 diabetes mellitus E11.42 ; Bronchitis J40 ; Psoriasis L40.9 ; Dermatitis L30.9 and Chronic constipation K59.09 [facility] [id number] [place] [address] [id number] Nov, Hypertriglyceridemia E78.1 and Type 2 diabetes mellitus without complication, without long-term current use of insulin E11.9 [place] [id number] [place] [address] [id number] Nov, Hyperlipidemia, unspecified hyperlipidemia type E78.[address] [id number] Oct, [place] [id number] [place] [address] [id number] Oct, Diabetic polyneuropathy associated with type 2 diabetes mellitus E11.42 ; Insomnia due to other mental disorder F51.05 ; Psoriasis L40.9 and Hip bursitis , left M70.72 [facility] [id number] [place] [address] [id number] Oct, [address] [id number] Oct, Dermatitis L30.9 [place] [address] [place] [address] [id number] Sep, Pain of left hip joint M25.552 and Insomnia due to other mental disorder F51.05 [facility] [id number] [place] [address] [id number] Sep, Bronchitis J40 [place] [id number] [place] [address] [id number] Sep, Acute nasopharyngitis J00 ; History of wheezing Z87.898 ; Tobacco abuse Z72.0 and Tobacco abuse counseling Z71.6 [facility] [address] [id number] [place] [address] [phone] Sep, [address] [place] [id number] Sep, Type 2 diabetes mellitus without complication, without long-term current use of insulin E11.9 [facility] [place] [address] [id number] [place] [id number] Aug, Chronic constipation K59.09 [facility] [place] [id number] [place] [address] [id number] Aug, Type 2 diabetes mellitus without complication, without long-term current use of insulin E11.9 [facility] [place] [id number] [place] [address] [id number] Aug, [facility] [place] [id number] [place] [address] [id number] Jul, Breast tenderness in female N64.4 ; Screening breast examination Z12.39 ; History of lump of left breast Z87.898 and Chronic constipation K59.09 [facility] [place] [id number] [place] [address] [id number] Jul, Type 2 diabetes mellitus without complication, without long-term current use of insulin E11.9 ; Hip bursitis, left M70.72 ; Schizophrenia, unspecified type F20.9 and Diabetic polyneuropathy associated with type 2 diabetes mellitus E11.42 [facility] [place] [address] [id number] [place] [id number] Jul, [facility] [place] [id number] [place] [address] [id number] Jul, Hip bursitis, left M70.72 [facility] [place] [id number] [place] [address] [id number] Jun, Diabetic polyneuropathy associated with type 2 diabetes mellitus E11.42 [facility] [place] [id number] [place] [address] [id number] Jun, [facility] [place] [id number] [place] [address] [id number] May, Type 2 diabetes mellitus without complication, without long-term current use of insulin E11.9 [facility] [place] [id number] [place] [address] [id number] May, [facility] [place] [id number] [place] [address] [id number] May, Dermatitis L30.9 [address] [place] [address] [id number] Apr, [place] [id number] [place] [address] [id number] Apr, Type 2 diabetes mellitus without complication, without long-term current use of insulin E11.9 and Schizophrenia, unspecified type F20.9 [place] [id number] [place] [address] [id number] Apr, [place] [id number] [place] [address] [id number] Apr, [place] [id number] [place] [address] [id number] Mar, Depression, unspecified depression type F32.9 ; Schizophrenia, unspecified type F20.9 and Psoriasis L40.9 [address] [place] [address] [id number] Feb, Prediabetes R73.09 ; Depression, unspecified depression type F32.9 ; Schizophrenia, unspecified type F20.9 and Hypertriglyceridemia E78.1 [address] [place] [address] [id number] January, Hyperlipidemia, unspecified hyperlipidemia type E78.5 [place] [id number] [place] [address] [id number] January, Schizophrenia, unspecified type F20.9 ; Depression, unspecified depression type F32.9 ; PTSD (post-traumatic stress disorder) F43.10 and Prediabetes R73.09 IMMUNIZATIONS No Known Immunizations SOCIAL HISTORY Never Assessed REASON FOR VISIT med refill PLAN OF CARE VITAL SIGNS MEDICATIONS Medication Instructions Dosage Frequency Start Date End Date Duration Status Proctozone-HC 2.5 % Rectal Twice a day as needed 1 application to affected area 0 days Active RESULTS No Results PROCEDURES [...]
--- OUTSIDE RECORDS SUMMARY | 2018-04-22 00:24 | XMS REPORT ---
Author Author AGUILAR SMITH [facility] Address [address] [place] [address] Care Team Providers Care Offset Pressman Name Role Phone AGUILAR SMITH Unavailable PROBLEMS Type Condition ICD9-CM Code RHT12-YG Code Onset Dates Condition Status SNOMED Code Problem Prediabetes R73.09 Active 194903175 Problem Type 2 diabetes mellitus without complication, without long-term current use of insulin E11.9 Active 910050272 Problem Psoriasis L40.9 Active 1101151 Problem Depression, unspecified depression type F32.9 Active 60118320 Problem PTSD (post-traumatic stress disorder) F43.10 Active 12113653 Problem Hypertriglyceridemia E78.1 Active 537051491 Problem Schizophrenia, unspecified type F20.9 Active 59593879 ALLERGIES Unknown Allergies SOCIAL HISTORY No smoking Hx information available PLAN OF CARE VITAL SIGNS MEDICATIONS Medication Instructions Dosage Frequency Start Date End Date Duration Status Triamcinolone Acetonide 0.1 % Externally Twice a day as needed for skin flairs 1 application to affected area Mar, Active RESULTS No Results PROCEDURES No Known procedures IMMUNIZATIONS No Known Immunizations
--- OUTSIDE RECORDS SUMMARY | 2018-04-22 00:24 | XMS REPORT ---
Author Author AGUILAR SMITH [facility] Address [address] [place] [address] Care Team Providers Care Urban Design Consultant Name Role Phone AGUILAR SMITH Unavailable PROBLEMS Type Condition ICD9-CM Code HPI25-BG Code Onset Dates Condition Status SNOMED Code Problem PTSD (post-traumatic stress disorder) F43.10 Active 00016233 Problem Psoriasis L40.9 Active 5356868 Problem Hypertriglyceridemia E78.1 Active 575191694 Problem Depression, unspecified depression type F32.9 Active 88485693 Problem Schizophrenia, unspecified type F20.9 Active 61554625 Problem Prediabetes R73.09 Active 102709602 Problem Insomnia due to other mental disorder F51.05 Active 20870148 Problem History of lump of left breast Z87.898 Active 999956993 Problem Diabetic polyneuropathy associated with type 2 diabetes mellitus E11.42 Active 41919995 Problem Type 2 diabetes mellitus without complication, without long-term current use of insulin E11.9 Active 935474897 Problem Chronic constipation K59.09 Active 994571008 Problem Hip bursitis, left M70.72 Active 32713060 ALLERGIES No Information SOCIAL HISTORY Never Assessed PLAN OF CARE VITAL SIGNS MEDICATIONS Unknown Medications RESULTS No Results PROCEDURES No Known procedures IMMUNIZATIONS No Known Immunizations MEDICAL (GENERAL) HISTORY Type Description Date Medical History schizophrenia Medical History PTSD Medical History depression Medical History mood disorder Medical History fibromyalgia Surgical History section x 2 1986,1996 Surgical History tubal ligation 1986 Surgical History cholecystectomy 2005 Surgical History tonsillectomy 1978 Surgical History hysterectomy 2009 Surgical History colonoscopy 2014 Hospitalization History surgeries
--- OUTSIDE RECORDS SUMMARY | 2018-04-22 00:24 | XMS REPORT ---
Author Author AGUILAR SMITH [facility] Address [address] [place] [address] Care Team Providers Care Computer Applications Engineer Name Role Phone AGUILAR SMITH Unavailable PROBLEMS Type Condition ICD9-CM Code UJA05-VS Code Onset Dates Condition Status SNOMED Code Problem Hypertriglyceridemia E78.1 Active 066773859 Problem Type 2 diabetes mellitus without complication, without long-term current use of insulin E11.9 Active 011899356 Problem Psoriasis L40.9 Active 3185777 Problem Depression, unspecified depression type F32.9 Active 56434503 Problem Schizophrenia, unspecified type F20.9 Active 06020766 Problem Prediabetes R73.09 Active 444002285 Problem PTSD (post-traumatic stress disorder) F43.10 Active 71031239 Problem Frequent headaches R51 Active 405459538 Problem Insomnia due to other mental disorder F51.05 Active 27406046 Problem Hip bursitis, left M70.72 Active 44590328 Problem Diabetic polyneuropathy associated with type 2 diabetes mellitus E11.42 Active 21561575 Problem History of lump of left breast Z87.898 Active 447147167 Problem Chronic constipation K59.09 Active 707563339 ALLERGIES No Information ENCOUNTERS Encounter Location Date Diagnosis [address] [id number] Dec, Frequent headaches R51 and Insomnia due to other mental disorder F51.05 [address] [id number] Nov, Type 2 diabetes mellitus without complication, without long-term current use of insulin E11.9 ; Frequent headaches R51 and Psoriasis L40.9 [address] [id number] Sep, [address] [id number] Sep, [place] [id number] [place] [address] [id number] Sep, Pain in left shoulder M25.512 [facility] [place] [address] [id number] [place] [address] [id number] Aug, Schizophrenia, unspecified type F20.9 ; Pain in left shoulder M25.512 and Pain in right shoulder M25.511 [facility] [place] [address] [id number] [place] [address] [id number] Aug, Schizophrenia, unspecified type F20.9 [facility] [place] [id number] [place] [address] [id number] Jul, Diabetic polyneuropathy associated with type 2 diabetes mellitus E11.42 ; Schizophrenia, unspecified type F20.9 and Psoriasis L40.9 [place] [id number] [place] [address] [id number] Jul, Vertigo R42 [place] [id number] [place] [address] [id number] May, Vertigo R42 [place] [id number] [place] [address] [id number] May, Diabetic polyneuropathy associated with type 2 diabetes mellitus E11.42 [place] [id number] [place] [address] [id number] Apr, Diabetic polyneuropathy associated with type 2 diabetes mellitus E11.42 ; Insomnia due to other mental disorder F51.05 and Vertigo R42 [place] [id number] [place] [address] [id number] Feb, Type 2 diabetes mellitus without complication, without long-term current use of insulin E11.9 and Other hemorrhoids K64.8 [address] [place] [address] [id number] January, Well woman exam Z01.419 ; Yeast infection of the skin B37.2 and Grade III hemorrhoids K64.2 [place] [id number] [place] [address] [id number] Dec, Diabetic polyneuropathy associated with type 2 diabetes mellitus E11.42 [place] [id number] [place] [address] [id number] Dec, Hypertriglyceridemia E78.1 ; Type 2 diabetes mellitus without complication , without long-term current use of insulin E11.9 ; Insomnia due to other mental disorder F51.05 ; Diabetic polyneuropathy associated with type 2 diabetes mellitus E11.42 ; Bronchitis J40 ; Psoriasis L40.9 ; Dermatitis L30.9 and Chronic constipation K59.09 [facility] [address] [id number] [place] [address] [id number] Nov, Hypertriglyceridemia E78.1 and Type 2 diabetes mellitus without complication, without long-term current use of insulin E11.9 [place] [id number] [place] [address] [id number] Nov, Hyperlipidemia, unspecified hyperlipidemia type E78.[address] [id number] Oct, [place] [id number] [place] [address] [id number] Oct, Diabetic polyneuropathy associated with type 2 diabetes mellitus E11.42 ; Insomnia due to other mental disorder F51.05 ; Psoriasis L40.9 and Hip bursitis , left M70.72 [facility] [address] [id number] [place] [id number] Oct, [address] [id number] Oct, Dermatitis L30.9 [place] [id number] [place] [address] [id number] Sep, Pain of left hip joint M25.552 and Insomnia due to other mental disorder F51.05 [facility] [address] [place] [id number] [place] [address] [id number] Sep, Bronchitis J40 [place] [id number] [place] [address] [id number] Sep, Acute nasopharyngitis J00 ; History of wheezing Z87.898 ; Tobacco abuse Z72.0 and Tobacco abuse counseling Z71.6 [facility] [id number] [place] [address] [phone] Sep, [address] [place], [place] [id number] Sep, Type 2 diabetes mellitus without complication, without long-term current use of insulin E11.9 [facility] [place] [address] [id number] [place] [id number] Aug, Chronic constipation K59.09 [facility] [place] [id number] [place] [address] [id number] Aug, Type 2 diabetes mellitus without complication, without long-term current use of insulin E11.9 [facility] [place] [id number] [place] [address] [id number] Aug, [facility] [place] [id number] [place] [address] [id number] Jul, Breast tenderness in female N64.4 ; Screening breast examination Z12.39 ; History of lump of left breast Z87.898 and Chronic constipation K59.09 [facility] [place] [id number] [place] [address] [id number] Jul, Type 2 diabetes mellitus without complication, without long-term current use of insulin E11.9 ; Hip bursitis, left M70.72 ; Schizophrenia, unspecified type F20.9 and Diabetic polyneuropathy associated with type 2 diabetes mellitus E11.42 [facility] [place] [address] [id number] [place] [id number] Jul, [facility] [place] [id number] [place] [address] [id number] Jul, Hip bursitis, left M70.72 [facility] [place] [id number] [place] [address] [id number] Jun, Diabetic polyneuropathy associated with type 2 diabetes mellitus E11.42 [facility] [place] [id number] [place] [address] [id number] Jun, [facility] [place] [id number] [place] [address] [id number] May, Type 2 diabetes mellitus without complication, without long-term current use of insulin E11.9 [facility] [place] [id number] [place] [address] [id number] May, [facility] [place] [id number] [place] [address] [id number] May, Dermatitis L30.9 [address] [place] [address] [id number] Apr, [place] [id number] [place] [address] [id number] Apr, Type 2 diabetes mellitus without complication, without long-term current use of insulin E11.9 and Schizophrenia, unspecified type F20.9 [place] [id number] [place] [address] [id number] Apr, [address] [place] [address] [id number] Apr, [place] [id number] [place] [address] [id number] Mar, Depression, unspecified depression type F32.9 ; Schizophrenia, unspecified type F20.9 and Psoriasis L40.9 [address] [place] [address] [id number] Feb, Prediabetes R73.09 ; Depression, unspecified depression type F32.9 ; Schizophrenia, unspecified type F20.9 and Hypertriglyceridemia E78.1 [address] [place] [address] [id number] January, Hyperlipidemia, unspecified hyperlipidemia type E78.5 [place] [id number] [place] [address] [id number] January, Schizophrenia, unspecified type F20.9 ; Depression, unspecified depression type F32.9 ; PTSD (post-traumatic stress disorder) F43.10 and Prediabetes R73.09 IMMUNIZATIONS No Known Immunizations SOCIAL HISTORY Never Assessed REASON FOR VISIT med refill PLAN OF CARE VITAL SIGNS MEDICATIONS Medication Instructions Dosage Frequency Start Date End Date Duration Status Meclizine HCl 25 MG Orally 3 times a day 1 tablet as needed 8h Apr, 0 days Active RESULTS No Results PROCEDURES [...]
--- OUTSIDE RECORDS SUMMARY | 2018-04-22 00:24 | XMS REPORT ---
Author Author AGUILAR SMITH [facility] Address [address] [place] [address] Care Team Providers Care Scale Tester Name Role Phone AGUILAR SMITH Unavailable PROBLEMS Type Condition ICD9-CM Code NSF51-US Code Onset Dates Condition Status SNOMED Code Problem PTSD (post-traumatic stress disorder) F43.10 Active 72305080 Problem Psoriasis L40.9 Active 0043280 Problem Hypertriglyceridemia E78.1 Active 868315465 Problem Depression, unspecified depression type F32.9 Active 98126957 Problem Schizophrenia, unspecified type F20.9 Active 55113757 Problem Prediabetes R73.09 Active 821063576 Problem Insomnia due to other mental disorder F51.05 Active 22786946 Problem History of lump of left breast Z87.898 Active 846364152 Problem Diabetic polyneuropathy associated with type 2 diabetes mellitus E11.42 Active 27686353 Problem Type 2 diabetes mellitus without complication, without long-term current use of insulin E11.9 Active 102862145 Problem Chronic constipation K59.09 Active 213326121 Problem Hip bursitis, left M70.72 Active 99501109 ALLERGIES No Information SOCIAL HISTORY Never Assessed PLAN OF CARE VITAL SIGNS MEDICATIONS Medication Instructions Dosage Frequency Start Date End Date Duration Status Paxil 40 mg Orally Once a day 1 tablet in the morning 24h Active RESULTS No Results PROCEDURES No [...]
--- OUTSIDE RECORDS SUMMARY | 2018-04-22 00:24 | XMS REPORT ---
Author Author AGUILAR SMITH [facility] Address [address] [place] [address] Care Team Providers Care Mason Apprentice Name Role Phone AGUILAR SMITH Unavailable PROBLEMS Type Condition ICD9-CM Code QEF47-SJ Code Onset Dates Condition Status SNOMED Code Problem Schizophrenia, unspecified type F20.9 Active 66971072 Problem Psoriasis L40.9 Active 3426545 Problem Hypertriglyceridemia E78.1 Active 478816820 Problem Prediabetes R73.09 Active 277540583 Problem PTSD (post-traumatic stress disorder) F43.10 Active 48666962 Problem Depression, unspecified depression type F32.9 Active 82768135 Problem Insomnia due to other mental disorder F51.05 Active 44298316 Problem Chronic constipation K59.09 Active 421316275 Problem Diabetic polyneuropathy associated with type 2 diabetes mellitus E11.42 Active 42326055 Problem Type 2 diabetes mellitus without complication, without long-term current use of insulin E11.9 Active 287190714 Problem History of lump of left breast Z87.898 Active 531506974 Problem Hip bursitis, left M70.72 Active 33310697 ALLERGIES Unknown Allergies SOCIAL HISTORY No smoking Hx information available PLAN OF CARE VITAL SIGNS MEDICATIONS Medication Instructions Dosage Frequency Start Date End Date Duration Status Gabapentin 300 MG Orally Three times a day 1 capsule 8h 30 days Active RESULTS No Results PROCEDURES No Known procedures IMMUNIZATIONS No Known Immunizations
--- OUTSIDE RECORDS SUMMARY | 2018-04-22 00:25 | XMS REPORT ---
Author Author AGUILAR SMITH Organization [employer] Address Unknown Phone Unavailable Care Team Providers Care Emergency Generator Mechanic Name Role Phone AGUILAR SMITH CP Unavailable Allergies No Known Allergies Problems Problem Type Condition Code Onset Dates Condition Status Problem Hypertriglyceridemia E78.1 Active Problem Schizophrenia, unspecified type F20.9 Active Problem Psoriasis L40.9 Active Problem Prediabetes R73.09 Active Problem Depression, unspecified depression type F32.9 Active Problem PTSD (post-traumatic stress disorder) F43.10 Active Medications No Known Medications Results No Known Results Summary Purpose [employer] Submission
--- OUTSIDE RECORDS SUMMARY | 2018-04-22 00:25 | XMS REPORT ---
Author Author AGUILAR SMITH [facility] Address [address] [place] [address] Care Team Providers Care Solar Photovoltaic Systems Engineer Name Role Phone AGUILAR SMITH Unavailable PROBLEMS Type Condition ICD9-CM Code [id number] Code Onset Dates Condition Status SNOMED Code Problem PTSD (post-traumatic stress disorder) F43.10 Active 40691067 Problem Psoriasis L40.9 Active 6656650 Problem Hypertriglyceridemia E78.1 Active 666563277 Problem Depression, unspecified depression type F32.9 Active 06616264 Problem Schizophrenia, unspecified type F20.9 Active 88722625 Problem Prediabetes R73.09 Active 052280007 Problem Insomnia due to other mental disorder F51.05 Active 90916526 Problem History of lump of left breast Z87.898 Active 590584642 Problem Diabetic polyneuropathy associated with type 2 diabetes mellitus E11.42 Active 94090791 Problem Type 2 diabetes mellitus without complication, without long-term current use of insulin E11.9 Active 875175363 Problem Chronic constipation K59.09 Active 221766777 Problem Hip bursitis, left M70.72 Active 02930014 ALLERGIES Substance Reaction Event Type Date Status Risperdal hives Drug Allergy Nov, Active Penicillin V Potassium rash Drug Allergy Nov, Active Iodine anaphylaxis Drug Allergy Nov, Active SOCIAL HISTORY Never Assessed PLAN OF CARE Activity Details Follow Up 4 Weeks Reason:dm VITAL SIGNS Height 66 in 2016-11-23 Weight 183.6 lbs 2016-11-23 Temperature 97.6 degrees Fahrenheit 2016-11-23 Heart Rate 94 bpm 2016-11-23 Respiratory Rate 16 2016-11-23 BMI 29.63 kg/m2 2016-11-23 Blood pressure systolic 130 mmHg 2016-11-23 Blood pressure diastolic 70 mmHg 2016-11-23 MEDICATIONS Medication Instructions Dosage Frequency Start Date End Date Duration Status Albuterol Sulfate HFA 108 (90 Base) MCG/ACT Inhalation 4 times a day 2 puffs as needed 6h Sep, Active Fish Oil 1000 MG Orally 3 times a day 1 capsule 8h Active Paxil 40 mg Orally Once a day 1 tablet in the morning 24h Active Seroquel 300 MG TAKE (2) TABLET BY MOUTH ONCE NIGHTLY AT BEDTIME. Active MiraLax 17 gm/dose Orally twice a day 17 grams mixed in 8 oz of water or juice 12h Active TRUEplus Lancets 28G - USE DIRECTED ONCE DAILY... Active Tricor 145 MG Orally Once a day 1 tablet 24h Active Gabapentin 300 MG Orally Three times a day 1 capsule 8h Active BD Ultra-Fine Pen [place] 29G X 12.7MM subcutaneously Once a day as directed 24h Oct, 30 days Active MetFORMIN HCl ER 750 MG Orally Once a day 2 tablet 24h Feb, Active Trazodone HCl 50 mg Orally Once a day .5-1 tablet at bedtime as needed 24h Sep, Active True Metrix Blood Glucose Test - USE DIRECTED ONCE DAILY... Active Test strips ... True Test Once a day, DX: E11.9 as directed Apr, Active Victoza 18 MG/3ML Subcutaneous Once a day .6 mg 24h Oct, Nov, Active Haloperidol 15 mg Orally 3 times a day 1 tablet 8h Active Glucometer ... True Test E11.9 as directed January, Active Triamcinolone Acetonide 0.1 % Externally Twice a day as needed for skin flairs 1 application to affected area Mar, Active Lancets - as directed 24h Apr, Active Meloxicam 7.5 MG Orally twice a day 1 tablet 12h 0 Active RESULTS No Results PROCEDURES No [...]
--- OUTSIDE RECORDS SUMMARY | 2018-04-22 00:25 | XMS REPORT ---
Author Author AGUILAR SMITH [facility] Address [address] [place] [address] Care Team Providers Care Termite Helper Name Role Phone AGUILAR SMITH Unavailable PROBLEMS Type Condition ICD9-CM Code [id number] Code Onset Dates Condition Status SNOMED Code Problem PTSD (post-traumatic stress disorder) F43.10 Active 99672626 Problem Psoriasis L40.9 Active 0647843 Problem Hypertriglyceridemia E78.1 Active 196700981 Problem Depression, unspecified depression type F32.9 Active 33877688 Problem Schizophrenia, unspecified type F20.9 Active 41439771 Problem Prediabetes R73.09 Active 133217315 Problem Insomnia due to other mental disorder F51.05 Active 71012657 Problem History of lump of left breast Z87.898 Active 033445731 Problem Diabetic polyneuropathy associated with type 2 diabetes mellitus E11.42 Active 03399580 Problem Type 2 diabetes mellitus without complication, without long-term current use of insulin E11.9 Active 339776110 Problem Chronic constipation K59.09 Active 317273862 Problem Hip bursitis, left M70.72 Active 89601395 ALLERGIES Substance Reaction Event Type Date Status Risperdal hives Drug Allergy Oct, Active Penicillin V Potassium rash Drug Allergy Oct, Active Iodine anaphylaxis Drug Allergy Oct, Active SOCIAL HISTORY Never Assessed PLAN OF CARE Activity Details Follow Up 2 Weeks Reason:dm VITAL SIGNS Height 66 in 2016-11-09 Weight 186.6 lbs 2016-11-09 Temperature 99.8 degrees Fahrenheit 2016-11-09 Heart Rate 104 bpm 2016-11-09 Respiratory Rate 2016-11-09 BMI 30.11 kg/m2 2016-11-09 Blood pressure systolic 130 mmHg 2016-11-09 Blood pressure diastolic 60 mmHg 2016-11-09 MEDICATIONS Medication Instructions Dosage Frequency Start Date End Date Duration Status Glucometer ... True Test E11.9 as directed January, Active MiraLax 17 gm/dose Orally twice a day 17 grams mixed in 8 oz of water or juice 12h Active Triamcinolone Acetonide 0.1 % Externally Twice a day as needed for skin flairs 1 application to affected area Mar, Active Trazodone HCl 50 mg Orally Once a day .5-1 tablet at bedtime as needed 24h Sep, Active Albuterol Sulfate HFA 108 (90 Base) MCG/ACT Inhalation 4 times a day 2 puffs as needed 6h Sep, Active Victoza 18 MG/3ML Subcutaneous Once a day .6 mg 24h Oct, Nov, 30 day(s) Active Gabapentin 300 MG Orally Three times a day 1 capsule 8h Active TRUEplus Lancets 28G - USE DIRECTED ONCE DAILY... Active Test strips ... True Test Once a day, DX: E11.9 as directed Apr, Active Tricor 48 MG Orally Once a day 1 tablet 24h Active Fish Oil 1000 MG Orally 3 times a day 1 capsule 8h Active Paxil 40 mg Orally Once a day 1 tablet in the morning 24h Active Seroquel 300 MG TAKE (2) TABLET BY MOUTH ONCE NIGHTLY AT BEDTIME. Active Lancets - as directed 24h Apr, Active True Metrix Blood Glucose Test - USE DIRECTED ONCE DAILY... Active Haloperidol 15 mg Orally 3 times a day 1 tablet 8h Active BD Ultra-Fine Pen [place] 29G X 12.7MM subcutaneously Once a day as directed 24h Oct, 30 days Active MetFORMIN HCl ER 750 MG Orally Once a day 2 tablet 24h Feb, Active RESULTS Name Result Date Reference Range A1C (IN HOUSE) 2016-11-09 A1C IN HOUSE 8.0 4.3 - 5.6 % Previous A1c 7.1 Lot [id number] Exp date 07/07 PROCEDURES Procedure Date Ordered Result Body Site GLYCATED HEMOGLOBIN TEST Nov 09, 2016 IMMUNIZATIONS No Known Immunizations MEDICAL (GENERAL) [...]
--- OUTSIDE RECORDS SUMMARY | 2018-04-22 00:25 | XMS REPORT ---
Author Author AGUILAR SMITH [facility] Address [address] [place] [address] Care Team Providers Care Bonsai Culturist Name Role Phone AGUILAR SMITH Unavailable PROBLEMS Type Condition ICD9-CM Code [id number] Code Onset Dates Condition Status SNOMED Code Problem PTSD (post-traumatic stress disorder) F43.10 Active 93840088 Problem Psoriasis L40.9 Active 7755295 Problem Hypertriglyceridemia E78.1 Active 764267518 Problem Depression, unspecified depression type F32.9 Active 80980881 Problem Schizophrenia, unspecified type F20.9 Active 23819387 Problem Prediabetes R73.09 Active 998439508 Problem Insomnia due to other mental disorder F51.05 Active 81028015 Problem History of lump of left breast Z87.898 Active 882830261 Problem Diabetic polyneuropathy associated with type 2 diabetes mellitus E11.42 Active 68505250 Problem Type 2 diabetes mellitus without complication, without long-term current use of insulin E11.9 Active 027312736 Problem Chronic constipation K59.09 Active 343420421 Problem Hip bursitis, left M70.72 Active 16996824 ALLERGIES Substance Reaction Event Type Date Status Risperdal hives Drug Allergy Sep, Active Penicillin V Potassium rash Drug Allergy Sep, Active Iodine anaphylaxis Drug Allergy Sep, Active SOCIAL HISTORY Never Assessed PLAN OF CARE Activity Details Follow Up as schd Reason:dm VITAL SIGNS Height 66 in 2016-10-19 Weight 188.2 lbs 2016-10-19 Temperature 97.5 degrees Fahrenheit 2016-10-19 Heart Rate 100 bpm 2016-10-19 Respiratory Rate 16 2016-10-19 BMI 30.37 kg/m2 2016-10-19 Blood pressure systolic 130 mmHg 2016-10-19 Blood pressure diastolic 66 mmHg 2016-10-19 MEDICATIONS Medication Instructions Dosage Frequency Start Date End Date Duration Status MetFORMIN HCl ER 750 MG Orally Once a day 2 tablet 24h 14 Feb, 2016 Active Meloxicam 7.5 MG Orally twice a day 1 tablet 12h Sep, Sep, 0 days Active Gabapentin 300 MG Orally Three times a day 1 capsule 8h 30 days Active MiraLax 17 gm/dose Orally twice a day 17 grams mixed in 8 oz of water or juice 12h Active Seroquel 300 MG Orally Once a day 1 tab qhs x 1 wk then 2 tablet at bedtime 24h Active Lancets - as directed 24h Apr, Active Paxil 40 mg Orally Once a day .5 tab qd x 1 wk then 1 tablet in the morning 24h Active Benzonatate 100 mg Orally Three times a day 1 capsule as needed 8h Sep, Active Haloperidol 15 mg Orally 3 times a day 1 tablet 8h Active Trazodone HCl 50 mg Orally Once a day .5-1 tablet at bedtime as needed 24h Sep, 30 day(s) Active Fish Oil 1000 MG Orally 3 times a day 1 capsule 8h Active Albuterol Sulfate HFA 108 (90 Base) MCG/ACT Inhalation 4 times a day 2 puffs as needed 6h Sep, Active Tricor 48 MG Orally Once a day 1 tablet 24h Active Glucometer ... True Test E11.9 as directed January, Active Test strips ... True Test Once a day, DX: E11.9 as directed Apr, Active RESULTS No Results PROCEDURES No Known procedures IMMUNIZATIONS No Known Immunizations MEDICAL (GENERAL) HISTORY Type Description Date Medical History schizophrenia Medical History PTSD Medical History depression Medical History mood disorder Medical History fibromyalgia Surgical History section x 2 1986,1996 Surgical History tubal ligation 1986 Surgical History cholecystectomy 2005 Surgical History tonsillectomy 1978 Surgical History hysterectomy 2010 Surgical History colonoscopy 2014 Hospitalization History surgeries
[2018-04-22 00:30] VITALS: BP 176/89
[2018-04-22 01:21] VITALS: BP 176/89
[2018-04-22 04:00] VITALS: BP 148/63
[2018-04-22 05:44] LABS: BASOPHILS # (AUTO) 0.1 10^3/uL (0.0-0.1); BASOPHILS % (AUTO) 1 % (0-10); EOSINOPHILS # (AUTO) 0.5 10^3/uL (0.0-0.3); EOSINOPHILS % (AUTO) 5 % (0-10); HEMATOCRIT 25 % (35-52); HEMOGLOBIN 7.9 G/DL (11.5-16.0); LYMPHOCYTES # (AUTO) 1.8 X 10^3 (1.0-4.0); LYMPHOCYTES % (AUTO) 20 % (12-44); MEAN CORPUSCULAR HEMOGLOBIN 25 PG (25-34); MEAN CORPUSCULAR HGB CONC 32 G/DL (32-36); MEAN CORPUSCULAR VOLUME 78 FL (80-99); MEAN PLATELET VOLUME 9.1 FL (7.4-10.4); MONOCYTES # (AUTO) 0.7 X 10^3 (0.0-1.0); MONOCYTES % (AUTO) 8 % (0-12); NEUTROPHILS # (AUTO) 5.9 X 10^3 (1.8-7.8); NEUTROPHILS % (AUTO) 67 % (42-75); PLATELET COUNT 449 10^3/uL (130-400); RED BLOOD COUNT 3.16 10^6/uL (4.35-5.85); RED CELL DISTRIBUTION WIDTH 17.6 % (10.0-14.5); WHITE BLOOD COUNT 8.8 10^3/uL (4.3-11.0)
[2018-04-22] MEDS ORDERED: IRON SUCROSE 200 MG/10 ML (VENOFER) VIAL IV ONE (07:00)
[2018-04-22 08:00] VITALS: BP 145/72
[2018-04-22] MEDS ORDERED: ACET-2267 PO (10:33)
[2018-04-22] MEDS ORDERED: OMG1KC PO (10:33)
--- NOTE | 2018-04-22 11:15 | Short Stay Summary ---
History of Present Illness History of Present Illness Reason for visit/HPI 52 yo F that presented to ER with fatigue and found to have hgb of 5. Patient denies any blood stools or urine. H/o hysterectomy 2007. Denies any recent blood loss. No chest pain or shortness of breath. + fatigue with minimal exertion. Date of Admission Apr 21, 2018 at 17:45 Date of Discharge 04/22/2018 Time Seen by Provider: 11:12 Attending Physician Humberto Montiel MD Admitting Physician Ajay Galan ciara Consult Allergies and Home Medications Allergies Coded Allergies: Penicillins (Verified Allergy, Unknown, 04/21/18) iodine (Verified Allergy, Unknown, 04/21/18) risperidone (Verified Allergy, Unknown, 04/21/18) Home Medications Acetaminophen 500 Mg Tablet, 500-1,000 MG PO Q6H PRN for PAIN-MILD, (Reported) [place] 3 Polyunsat Fatty Acids 1,000 Mg Cap, 1,000 MG PO TID, (Reported) Patient Home Medication List Home Medication List Reviewed: Yes Past Cxconor-Ghpvle-Kpcmjr Hx Patient Social History Living Status: Lives home with Alcohol Use: Denies Use Recreational Drug Use: No Smoking Status: Current Everyday Smoker Type Used: Cigarettes Physical Abuse Screen: No Sexual Abuse: No Recent Foreign Travel: No Contact w/other who traveled: No Recent Hopitalizations: No Recent Infectious Disease Expo: No Seasonal Allergies Seasonal Allergies: No Surgeries No Appendectomy, Section, Gallbladder, Hysterectomy, Tonsillectomy, Tubal Ligation Respiratory No Cardiovascular No Neurological No Reproductive System : No Genitourinary No Gastrointestinal No Musculoskeletal No Endocrine History of Endocrine Disorders: Yes Endocrine Disorders: Diabetes, Non-Insulin dep HEENT History of HEENT Disorders: No Loss of Vision: Denies Hearing Impairment: Denies Cancer No Psychosocial History of Psychiatric Problem: Yes Behavioral Health Disorders: PTSD, Suicide Attempts, Schizophrenia, Depression Integumentary History of Skin or Integumenta: No Blood Transfusions History of Blood Disorders: No Adverse Reaction to a Blood Tr: No Family Medical History Significant Family History: Cancer (Mother of colon cancer), Diabetes ( Father and siblings) Constitutional: no symptoms reported; No chills, No fever; malaise, weakness EENTM: no symptoms reported Respiratory: No cough; dyspnea on exertion; No short of breath Cardiovascular: no symptoms reported; No chest pain, No edema, No palpitations Gastrointestinal: no symptoms reported; No abdominal pain, No constipation, No loss of appetite, No nausea, No vomiting Genitourinary: no symptoms reported; No dysuria, No frequency, No hematuria : No Musculoskeletal: no symptoms reported Skin: change in color (pale) Psychiatric/Neurological: No Symptoms Reported Physical Exam Vital Signs Vital Signs - First Documented 04/21/18 04/21/18 16:06 22:14 Temp 98.4 Pulse 81 Resp 16 B/P (MAP) 164/81 (108) Pulse Ox 100 O2 Delivery Room Air Capillary Refill : Less Than 3 Seconds Height, Weight, BMI Height: 5'6.00" Weight: 151lbs. 0.0oz. 68.970189hx; BMI Method:Stated General Appearance: No Apparent Distress, WD/WN HEENT: PERRL/EOMI, Other (Pale conjunctivae) Neck: Full Range of Motion, Non Tender, Supple Respiratory: Chest Non Tender, Lungs Clear, Normal Breath Sounds, No Accessory Muscle Use, No Respiratory Distress Cardiovascular: Regular Rate, Rhythm, No Murmur, Normal Peripheral Pulses Gastrointestinal: Normal Bowel Sounds, No Organomegaly, Non Tender, Soft Back: No CVA Tenderness, No Vertebral Tenderness Extremity: Normal Capillary Refill, Non Tender, No Calf Tenderness Neurologic/Psychiatric: Alert, Oriented x3, No Motor/Sensory Deficits, Normal Mood/Affect, storage solutions architect II-XII Norm as Tested Skin: Warm/Dry, Pallor Lymphatic: No Adenopathy Clinical Quality Measures DVT/VTE Risk/Contraindication: Risk Factor Score Per Nursin RFS Level Per Nursing on Admit: 1=Low/No VTE PPX Short Stay Diagnosis Discharge Diagnosis-Short Stay Admission Diagnosis: Microcyctic Anemia Non Insulin Dependent DM Tobacco Use Final Discharge Diagnosis: See Above Conclusion Labs Laboratory Tests 04/21/18 16:01: White Blood Count 8.5, Red Blood Count 2.61L, Hemoglobin 5.9*L, Hematocrit 20*L , Mean Corpuscular Volume 76L, Mean Corpuscular Hemoglobin 23L, Mean Corpuscular Hemoglobin Concent 30L, Red Cell Distribution Width 16.8H, Platelet Count 624H, Mean Platelet Volume 9.2, Neutrophils (%) (Auto) 59, Lymphocytes (% ) (Auto) 27, Monocytes (%) (Auto) 7, Eosinophils (%) (Auto) 7, Basophils (%) ( Auto) 1, Neutrophils # (Auto) 5.0, Lymphocytes # (Auto) 2.3, Monocytes # (Auto) 0.6, Eosinophils # (Auto) 0.6H, Basophils # (Auto) 0.1, Sodium Level 142, Potassium Level 4.1, Chloride Level 110H, Carbon Dioxide Level 22, Anion Gap 10 , Blood Urea Nitrogen 6L, Creatinine 1.01, Estimat Glomerular Filtration Rate 58 , BUN/Creatinine Ratio 6, Glucose Level 163H, Calcium Level 9.1, Total Bilirubin 0.1, Aspartate Amino Transf (AST/SGOT) 17, Alanine Aminotransferase ( ALT/SGPT) 8, Alkaline Phosphatase 62, Total Protein 7.5, Albumin 4.0 04/21/18 18:04: White Blood Count 8.5, Red Blood Count 2.61L, Hemoglobin 5.9*L, Hematocrit 20*L , Mean Corpuscular Volume 76L, Mean Corpuscular Hemoglobin 23L, Mean Corpuscular Hemoglobin Concent 30L, Red Cell Distribution Width 16.8H, Platelet Count 624H, Mean Platelet Volume 9.2, Neutrophils (%) (Auto) 59, Lymphocytes (% ) (Auto) 27, Monocytes (%) (Auto) 7, Eosinophils (%) (Auto) 7, Basophils (%) ( Auto) 1, Neutrophils # (Auto) 5.0, Lymphocytes # (Auto) 2.3, Monocytes # (Auto) 0.6, Eosinophils # (Auto) 0.6H, Basophils # (Auto) 0.1, Neutrophils % (Manual) 65, Lymphocytes % (Manual) 24, Monocytes % (Manual) 6, Eosinophils % (Manual) 5 , Band Neutrophils 0, Hypochromasia SLIGHT, Microcytosis SLIGHT, Absolute Reticulocyte Count 0L, Percent Reticulocyte Count 1.22 04/22/18 05:10: White Blood Count 8.8, Red Blood Count 3.16L, Hemoglobin 7.9#L, Hematocrit 25L, Mean Corpuscular Volume 78L, Mean Corpuscular Hemoglobin 25, Mean Corpuscular Hemoglobin Concent 32, Red Cell Distribution Width 17.6H, Platelet Count 449H, Mean Platelet Volume 9.1, Neutrophils (%) (Auto) 67, Lymphocytes (%) (Auto) 20, Monocytes (%) (Auto) 8, Eosinophils (%) (Auto) 5, Basophils (%) (Auto) 1, Neutrophils # (Auto) 5.9, Lymphocytes # (Auto) 1.8, Monocytes # (Auto) 0.7, Eosinophils # (Auto) 0.5H, Basophils # (Auto) 0.1 04/22/18 05:13: Glucometer 101 Conclusion/Plan 52 yo F admitted to obs for severe anemia that required transfusion Plan Microcytic Anemia - Surgery consulted in the ER and will plan for scopes as outpatient - Start daily iron supplementation NIDDM - Continue home meds Plan for discharge today with close follow up with Feng Galan Copy Copies To 1: [facility] HUMBERTO Rashid MD Apr 22, 2018 11:15
[2018-04-22] MEDS ORDERED: FERR325T18 PO (11:22)
--- NOTE | 2018-04-22 11:30 | Discharge Instructions ---
Discharge Inst-[facility] Discharge Medications New, Converted or Re-Newed RX: Transmitted to Pharmacy New Medications: Ferrous Sulfate (Ferrous Sulfate) 325 Mg Tablet 325 MG PO DAILY for 30 Days, #30 TAB Continued Medications: Acetaminophen (Tylenol Extra Strength) 500 Mg Tablet 500-1000 MG PO Q6H PRN for PAIN-MILD, TAB [place] 3 Polyunsat Fatty Acids (Fish Oil 1,000 mg Capsule) 1,000 Mg Cap 1000 MG PO TID, CAP Patient Instructions Goal/Follow Up Appt: You have a follow up appt with Feng Galan on 04/28 @ 0973 Patient Instructions: - Make sure to start you iron tablets and focus on iron rich diet Return to The Hospital For: - Chest pain - Shortness of breath - Blood in stool or urine Activity & Diet Discharge Diet: No Restrictions Activity as Tolerated: Yes Copy [facility] To 1: [facility] MD Apr 22, 2018 11:30 am
== END 2018-04-22 11:28 | disposition home or self-care (01) ==
LOC: EDUNIT# 15:27 → ER 15:29 → 4TH 17:45 → UNDOADMOB 17:45 → 4TH 18:51 → UNDODISOB 04-22 12:05
PROVIDERS: ADMIT Family Medicine; ATTEND Family Medicine
DX: D50.9 Iron deficiency anemia, unspecified (principal); E11.9 Type 2 diabetes mellitus without complications; F17.210 Nicotine dependence, cigarettes, uncomplicated; F43.10 Post-traumatic stress disorder, unspecified; F20.9 Schizophrenia, unspecified; F32.9 Major depressive disorder, single episode, unspecified; Z80.0 Family history of malignant neoplasm of digestive organs
CPT/HCPCS: 36415; 36430; 80053; 82728; 82962; 85007; 85025; 85045; 85055; 86850; 86900; 86901; 86920; 96360; 96361; G0378